=== PATIENT | male | born 1970 | race Caucasian/White ===

== ENCOUNTER 2017-11-12 14:23 | Emergency (ER) | payer BC ==
--- NOTE | 2017-11-12 14:51 | EDM.PDOC ---
<Curt Figueroa J - Last Filed: 11/12/17 14:49> ED HPI GENERAL MEDICAL PROBLEM - General Chief Complaint: Flank Pain Stated Complaint: LOWER BACK AND ABDOMINAL PAIN Time Seen by Provider: 11/12/17 14:32 - History of Present Illness INITIAL COMMENTS - FREE TEXT/NARRATIVE: HISTORY AND PHYSICAL: History of present illness: Ages 47-year-old male with history of hypertension and chronic low back pain who presents now with increasing left-sided pain with radiation to his left abdomen and groin is concerned about urolithiasis he does not have a history of such she's had no fever chills trauma no other complaints. Review of systems: As per history of present illness and below otherwise all systems reviewed and negative. Past medical history: As per history of present illness and as reviewed below otherwise noncontributory. Surgical history: As per history of present illness and as reviewed below otherwise noncontributory. Social history: No reported history of drug or alcohol abuse. Family history: As per history of present illness and as reviewed below otherwise noncontributory. Physical exam: HEENT: Atraumatic, normocephalic, pupils reactive, negative for conjunctival pallor or scleral icterus, mucous membranes moist, throat clear, neck supple, nontender, trachea midline. Lungs: Clear to auscultation, breath sounds equal bilaterally, chest nontender. Heart: S1S2, regular, negative for clicks, rubs, or JVD. Abdomen: Soft, nondistended, nontender. Negative for masses or hepatosplenomegaly. Equivocal left side costovertebral tenderness. Pelvis: Stable nontender. Genitourinary: Deferred. Rectal: Deferred. Extremities: Atraumatic, negative for cords or calf pain. Neurovascular unremarkable. Neuro: Awake, alert, oriented. Cranial nerves II through XII unremarkable. Cerebellum unremarkable. Motor and sensory unremarkable throughout. Exam nonfocal. Diagnostics: CBC CMP UA urine C&S CT abdomen and pelvis Therapeutics: None Impression: #1 chronic low back pain #2 acute left flank pain #3 history of hypertension Definitive disposition and diagnosis as appropriate pending reevaluation and review of above. Left Flank Pain Score (Numeric/FACES): 6 - Related Data Allergies Allergy/AdvReac Type Severity Reaction Status Date / Time No Known Allergies Allergy Verified 11/12/17 14:41 Home Meds: Home Meds Fenofibrate Nanocrystallized [Tricor] 145 mg PO DAILY 01/08/15 [History] Sertraline [Zoloft] 100 mg PO DAILY 01/08/15 [History] amLODIPine [Norvasc] 5 mg PO DAILY 01/08/15 [History] metFORMIN [Glucophage] 1,000 mg PO BIDMEALS 01/08/15 [History] Past Medical History Other HEENT History: Wears corrective glasses Other Respiratory History: ARDs ED ROS GENERAL - Review of Systems Review Of Systems: ROS reveals no pertinent complaints other than HPI. ED EXAM, GENERAL - Physical Exam Exam: See Below (See dictation) Course - Vital Signs Last Recorded V/S: Last Vital Signs Temp 36.4 C 11/12/17 14:42 Pulse 85 11/12/17 14:42 Resp 18 11/12/17 14:42 BP 141/80 H 11/12/17 14:42 Pulse Ox 96 11/12/17 14:42 - Orders/Labs/Meds Orders: Active Orders 24 hr Category Date Time Status CULTURE URINE [RM] Stat Lab 11/12/17 13:35 Ordered UA W/MICROSCOPIC [URIN] Stat Lab 11/12/17 13:35 Ordered Labs: Laboratory Tests 11/12/17 11/12/17 11/12/17 Range/Units 13:35 15:01 15:01 WBC 6.76 (4.0-11.0) K/uL RBC 4.56 (4.50-5.90) M/uL Hgb 14.1 (13.0-17.0) g/dL Hct 40.2 (38.0-50.0) % MCV 88.2 (80.0-98.0) fL MCH 30.9 (27.0-32.0) pg MCHC 35.1 (31.0-37.0) g/dL RDW Std Deviation 42.0 (28.0-62.0) fl RDW Coeff of Saeid 13 (11.0-15.0) % Plt Count 233 (150-400) K/uL MPV 9.20 (7.40-12.00) fL Neut % (Auto) 64.0 (48.0-80.0) % Lymph % (Auto) 26.3 (16.0-40.0) % [place] % (Auto) 5.6 (0.0-15.0) % Eos % (Auto) 3.1 (0.0-7.0) % Baso % (Auto) 1.0 (0.0-1.5) % Neut # (Auto) 4.3 (1.4-5.7) K/uL Lymph # (Auto) 1.8 (0.6-2.4) K/uL [place] # (Auto) 0.4 (0.0-0.8) K/uL Eos # (Auto) 0.2 (0.0-0.7) K/uL Baso # (Auto) 0.1 (0.0-0.1) K/uL Nucleated RBC % 0.0 /100WBC Nucleated RBCs # 0 K/uL Sodium 140 (136-148) mmol/L Potassium 4.0 (3.5-5.1) mmol/L Chloride 106 (98-107) mmol/L Carbon Dioxide 23.9 (21.0-32.0) mmol/L BUN 17 (7.0-18.0) mg/dL Creatinine 1.2 (0.8-1.3) mg/dL Est Cr Clr Drug Dosing TNP Estimated GFR (MDRD) > 60.0 ml/min Glucose 219 H (74-106) mg/dL Calcium 9.1 (8.5-10.1) mg/dL Total Bilirubin 0.3 (0.2-1.0) mg/dL AST 37 (15-37) IU/L ALT 78 H (14-63) IU/L Alkaline Phosphatase 49 (46-116) U/L Total Protein 7.7 (6.4-8.2) g/dL Albumin 4.4 (3.4-5.0) g/dL Globulin 3.3 (2.0-3.5) g/dL Albumin/Globulin Ratio 1.3 (1.3-2.8) Urine Color YELLOW Urine Appearance CLEAR Urine pH 5.5 (5.0-8.0) Ur Specific [place] 1.020 (1.001-1.035) Urine Protein NEGATIVE (NEGATIVE) mg/dL Urine Glucose (UA) >=1000 (NEGATIVE) mg/dL Urine Ketones NEGATIVE (NEGATIVE) mg/dL Urine Occult Blood NEGATIVE (NEGATIVE) Urine Nitrite NEGATIVE (NEGATIVE) Urine Bilirubin NEGATIVE (NEGATIVE) Urine Urobilinogen 0.2 (<2.0) EU/dL Ur Leukocyte Esterase NEGATIVE (NEGATIVE) Urine RBC NONE SEEN (0-2/HPF) Urine WBC 0-1 (0-5/HPF) Ur Epithelial Cells RARE (NONE-FEW) Amorphous Sediment NOT SEEN (NEGATIVE) Urine Bacteria NOT SEEN (NEGATIVE) Urine Mucus NOT SEEN (NONE-MOD) Departure - Departure Disposition: Home, Self-Care 01 Clinical Impression: Lumbar back pain - Discharge Information Referrals: Robbie Edmonds MD [Primary Care Provider] - Forms: ED Department Discharge Additional Instructions: 1. Please make an appointment with your pain doctor to arrange for a steroid injection. 2. Follow-up with your primary provider Dr. Edmonds. <Malgorzata Hardwick - Last Filed: 11/12/17 16:01> Departure - Departure Time of Disposition: 16:00 Condition: Good
--- NOTE | 2017-11-12 15:28 | CT ---
CT of the abdomen and pelvis without contrast. HISTORY: Pain TECHNIQUE: Axial CT images were obtained of the abdomen and pelvis without contrast. Coronal and sagi ttal reconstructions obtained. FINDINGS: The lung bases are clear, no pleural effusion. There are a few tiny subpleural nodules noted bilatera lly. There is moderate fatty infiltration of the liver with sparing near the falciform ligament. The Splee n, adrenal glands, and pancreas appear unremarkable for noncontrast examination. The gallbladder appe ars normal. There is no bulky retroperitoneal lymphadenopathy. No abdominal ascites. There are no calcifications noted within the kidneys or along the courses of the ureters bilaterally. Right renal cortical cysts. The large and small bowel are normal in caliber without evidence of obstruction. The appendix appears normal. There is no bulky pelvic lymphadenopathy. No free fluid. No free air. The urinary bladder ap pears normal. Endplate degenerative changes noted within the lower lumbar spine. No acute osseous abnormalities. IMPRESSION: 1. Moderate to severe fatty infiltration of the liver. 2. No acute findings noted within the abdomen or pelvis. 3. Tiny pulmonary nodules within the lung bases bilaterally, if the patient has known risk factors co nsider follow-up imaging in 12 months.
[2017-11-12 15:31] LABS: CHLORIDE,CL 106 mmol/L (98-107); SODIUM,NA 140 mmol/L (136-148)
[2017-11-12 16:10] VITALS: BP 148/93
== END 2017-11-12 16:06 | disposition home or self-care (01) ==
LOC: MW.ED 14:23
DX: M54.5 Low back pain (principal); G89.29 Other chronic pain; R10.9 Unspecified abdominal pain; I10 Essential (primary) hypertension; Z79.84 Long term (current) use of oral hypoglycemic drugs; Z79.899 Other long term (current) drug therapy
CPT/HCPCS: 36415; 74176; 74176-26; 80053; 81001; 85025; 87086; 99284-25

== ENCOUNTER 2019-04-20 09:07 | Observation (INO) | payer BC ==
[2019-04-20] MEDS ORDERED: Sodium Chloride 0.9% 1,000 ML IV ONE (09:22)
[2019-04-20] MEDS ORDERED: Aspirin 81 MG Tab.Chew PO ONE (09:26)
[2019-04-20] MEDS ORDERED: Nitroglycerin 0.4 MG Tab.SL SL PRN (09:45)
[2019-04-20 09:50] LABS: BLOOD UREA NITROGEN,BUN 14 mg/dL (7.0-18.0); CARBON DIOXIDE,CO2 21.2 mmol/L (21.0-32.0); CHLORIDE,CL 101 mmol/L (98-107); GLUCOSE RANDOM 187 mg/dL (74-106); POTASSIUM,K 3.9 mmol/L (3.5-5.1); SODIUM,NA 138 mmol/L (136-148)
[2019-04-20] MEDS: Metoprolol Tartrate 5 MG/5 ML SDV IVPUSH SCH ×3 (09:56→12:51)
--- NOTE | 2019-04-20 09:57 | CR ---
INDICATION: Dyspnea and chest pain. COMPARISON: Portable AP chest January 10, 2015. TECHNIQUE: Portable AP chest. FINDINGS: Normal size cardiac silhouette. Clear lung solomon with no evidence of acute pneumonic infiltrates or CHF. No pneumothorax or pleural effusion. Complete resolution of the pulmonary edema when compared to January 10, 2015. IMPRESSION: Negative portable AP chest. Dictated by Cole Anderson MD @ Apr 20 2019 9:54AM Signed by Dr. Cole Anderson @ Apr 20 2019 9:55AM
[2019-04-20] MEDS ORDERED: Azithromycin 500 MG in Sodium Chloride 0.9% 250 ML IV SCH (10:45)
[2019-04-20] MEDS ORDERED: Sodium Chloride 0.9% 1,000 ML IV SCH (10:45)
[2019-04-20] MEDS ORDERED: Acetaminophen 325 MG Tab PO PRN (11:30)
[2019-04-20] MEDS ORDERED: Docusate Sodium 100 MG Cap PO PRN (11:30)
[2019-04-20] MEDS ORDERED: Ondansetron 4 MG/2 ML SDV IVPUSH PRN (11:30)
[2019-04-20] MEDS: Albuterol/Ipratropium 3.0-0.5 MG/3 ML Neb Soln NEB SCH ×4 (11:57→21:12)
--- NOTE | 2019-04-20 12:01 | PCM.HP.2 ---
H&P History of Present Illness - General Date of Service: 04/20/19 Admit Problem/Dx: Admission Diagnosis/Problem Admission Diagnosis/Problem Chest pain Source of Information: Patient, Family ( at bedside) History Limitations: Reports: No Limitations - History of Present Illness Initial Comments - Free Text/Narative: This 48 year old male with pmh of HTN, dyslipidemia, GERD, DM type 2, ARDS with intubation and ICU stay in 2014 presented to the ED with concerns of chest pain that woke him up around 0200 am this morning. He reports he has not felt well for the last week or so. He was seen by his PCP April 08, influenza was obtained which was negative. VS were stable then and felt it was viral in nature. Today the chest pain woke him up, it was sharp to his left medial chest with radiation to his L neck and L ear with associated shortness of breath and mild diaphoresis. reports the pain worsens with deep breathing. He reports he has been having this sweating on and off the last couple days. He reports sinus congestion, mild ear fullness. No sore throat. He reports coughing and shortness of breath, cough is non productive. He denies abdominal pain or troubles urinating. Reports having increase in diarrhea and actually had stool samples sent last week with Dr Edmonds, so far these are appearing negative. He reports he is eating and drinking well. He reports dyslipidemia, no CAD. No hx LA or CVA. Reports DM Type 2 that is controlled. He chews 1 tin of chewing tobacco every couple days, no alcohol use and no recreational drug use. reports he is being worked up for LUIS and has this scheduled already due to waking up SOB during the night. He also has follow up regarding bowel habit changes next month as well. In the ED leukocytosis noted at 15, 470. UA negative. BMP WNL, glucose elevated at 187. Troponin negative. D Dimer 0.21. BNP 22. CXR negative. EKG reveals RBBB no acute ST or T wave changes. Upon arrival to ED HR tachycardic 133 with BP 150 /100s. He was given Lopressor and BP decreased to 130-150/90s. He was given ASA as well. He was noted to be hypoxic with sats in mid 80s, on 2 L NC sats improved to mid 90s. BC obtained. Azithromycin given in ED. He will be admitted for chest pain rule out, possible CAP and hypoxia. PCP, Dr Edmonds. Left Chest Pain Score (Numeric/FACES): 5 - Related Data Allergies/Adverse Reactions: Allergies Allergy/AdvReac Type Severity Reaction Status Date / Time No Known Allergies Allergy Verified 04/20/19 11:37 Home Medications: Home Meds Fenofibrate Nanocrystallized [Tricor] 160 mg PO DAILY 01/08/15 [History] Sertraline [Zoloft] 100 mg PO DAILY 01/08/15 [History] amLODIPine [Norvasc] 10 mg PO DAILY 01/08/15 [History] Diclofenac Sodium [Voltaren] 75 mg PO TID PRN 04/20/19 [History] Dulaglutide [Trulicity] 1.5 mg IM WEEKLY 04/20/19 [History] Empagliflozin/Metformin HCl [Synjardy 12.5-1,000 mg Tablet] 12.5 mg PO DAILY [History] Naproxen Sodium [Aleve] 220 mg PO ASDIRECTED 04/20/19 [History] Omeprazole 40 mg PO DAILY 04/20/19 [History] Past Medical History Other HEENT History: Wears corrective glasses Cardiovascular History: Reports: High Cholesterol, Hypertension. Denies: Afib, Blood Clots/VTE/DVT, CAD, LA, Stents Respiratory History: Reports: Sleep Apnea (being worked up for this with sleep study as outpatient) Other Respiratory History: ARDs Gastrointestinal History: Reports: GERD Genitourinary History: Reports: None Musculoskeletal History: Reports: Back Pain, Chronic Neurological History: Reports: None. Denies: CVA, Migraines Psychiatric History: Reports: Anxiety Endocrine/Metabolic History: Reports: Diabetes, Type II, Obesity/BMI 30+ - Infectious Disease History Infectious Disease History: Reports: Chicken Pox - Past Surgical History Cardiovascular Surgical History: Reports: None GI Surgical History: Reports: None Neurological Surgical History: Reports: None Musculoskeletal Surgical History: Reports: None Social & Family History - Family History Family Medical History: Noncontributory - Tobacco Use Smoking Status *Q: Former Smoker Tobacco Use Within Last Twelve Months: Smokeless Tobacco Packs/Tins Daily: 0.5 Packs/Tins Daily Comment: tobacco currently. Used Tobacco, but Quit: Yes Month/Year Tobacco Last Used: 5 years - Alcohol Use Alcohol Use History: No - Recreational Drug Use Recreational Drug Use: No - Living Situation & Occupation Living situation: Reports: Occupation: Employed H&P Review of Systems - Review of Systems: Review Of Systems: See Below General: Reports: Fever, Chills, Malaise HEENT: Reports: Ear Pain, Sinus Congestion. Denies: Headaches, Sore Throat, Vertigo, Visual Changes Pulmonary: Reports: Shortness of Breath, Pleuritic Chest Pain, Cough. Denies: Wheezing, Sputum, Hemoptysis Cardiovascular: Reports: Chest Pain (sharp stabbing in nature worse with deep breath, now only 1/). Denies: Lightheadedness Gastrointestinal: Reports: No Symptoms. Denies: Abdominal Pain, Black Stool, Bloody Stool, Diarrhea, Nausea, Vomiting Genitourinary: Reports: No Symptoms. Denies: Dysuria, Frequency, Burning Musculoskeletal: Reports: Back Pain (chronic, no worsening of this.) Skin: Reports: No Symptoms. Denies: Rash, Wound Psychiatric: Reports: No Symptoms Neurological: Reports: No Symptoms Hematologic/Lymphatic: Reports: No Symptoms Immunologic: Reports: No Symptoms Exam - Exam Exam: See Below - Vital Signs Vital Signs: Last Vital Signs Temp 99.0 F 04/20/19 11:30 Pulse 96 04/20/19 11:30 Resp 16 04/20/19 11:30 BP 133/96 H 04/20/19 11:30 Pulse Ox 98 04/20/19 11:30 Weight: 127.006 kg - Exam Quality Assessment: Supplemental Oxygen General: Alert, Oriented, Cooperative HEENT: Conjunctiva Clear, Nares Patent, Posterior Pharynx Clear, Pupils Equal, Pupils Reactive, TMs Clear (dull with serous fluid noted. No erythema). No: Mucosa Moist & [place] (dry lips) Lungs: Normal Respiratory Effort, Decreased Breath Sounds (bibasilar). No: Crackles, Wheezing Cardiovascular: Regular Rate, Regular Rhythm, Normal S1, Normal S2 GI/Abdominal Exam: Normal Bowel Sounds, Soft, Non-Tender, No Organomegaly, No Mass Extremities: Normal Inspection, Normal Range of Motion, Non-Tender, No Pedal Edema Neurological: Cranial Nerves Intact Neuro Extensive - Mental Status: Alert, Oriented x3 Neuro Extensive - Motor, Sensory, Reflexes: CN II-XII Intact Psychiatric: Alert, Normal Affect, Normal Mood - Patient Data Lab Results Last 24 hrs: Laboratory Results - last 24 hr 10/28/19 10/28/19 10/28/19 Range/Units 09:15 09:15 09:15 WBC 15.47 H (4.0-11.0) K/uL RBC 4.95 (4.50-5.90) M/uL Hgb 14.9 (13.0-17.0) g/dL Hct 41.9 (38.0-50.0) % MCV 84.6 (80.0-98.0) fL MCH 30.1 (27.0-32.0) pg MCHC 35.6 (31.0-37.0) g/dL RDW Std Deviation 39.8 (28.0-62.0) fl RDW Coeff of Saeid 13 (11.0-15.0) % Plt Count 265 (150-400) K/uL MPV 8.80 (7.40-12.00) fL Neut % (Auto) 81.8 H (48.0-80.0) % Lymph % (Auto) 10.3 L (16.0-40.0) % [place] % (Auto) 5.2 (0.0-15.0) % Eos % (Auto) 2.4 (0.0-7.0) % Baso % (Auto) 0.3 (0.0-1.5) % Neut # (Auto) 12.7 H (1.4-5.7) K/uL Lymph # (Auto) 1.6 (0.6-2.4) K/uL [place] # (Auto) 0.8 (0.0-0.8) K/uL Eos # (Auto) 0.4 (0.0-0.7) K/uL Baso # (Auto) 0.0 (0.0-0.1) K/uL Nucleated RBC % 0.0 /100WBC Nucleated RBCs # 0 K/uL INR 0.97 D-Dimer, Quantitative (0.0-0.50) mg/L FEU Lactate (0.20-2.00) mmol/L Sodium 138 (136-148) mmol/L Potassium 3.9 (3.5-5.1) mmol/L Chloride 101 (98-107) mmol/L Carbon Dioxide 21.2 (21.0-32.0) mmol/L BUN 14 (7.0-18.0) mg/dL Creatinine 0.9 (0.8-1.3) mg/dL Est Cr Clr Drug Dosing 123.23 mL/min Estimated GFR (MDRD) > 60.0 ml/min Glucose 187 H (74-106) mg/dL Calcium 9.5 (8.5-10.1) mg/dL Total Bilirubin 0.5 (0.2-1.0) mg/dL AST 29 (15-37) IU/L ALT 41 (14-63) IU/L Alkaline Phosphatase 70 (46-116) U/L Troponin I < 0.050 (0.000-0.056) ng/mL Total Protein 8.8 H (6.4-8.2) g/dL Albumin 4.6 (3.4-5.0) g/dL Globulin 4.2 H (2.6-4.0) g/dL Albumin/Globulin Ratio 1.1 (0.9-1.6) Urine Color Urine Appearance Urine pH (5.0-8.0) Ur Specific [place] (1.001-1.035) Urine Protein (NEGATIVE) mg/dL Urine Glucose (UA) (NEGATIVE) mg/dL Urine Ketones (NEGATIVE) mg/dL Urine Occult Blood (NEGATIVE) Urine Nitrite (NEGATIVE) Urine Bilirubin (NEGATIVE) Urine Urobilinogen (<2.0) EU/dL Ur Leukocyte Esterase (NEGATIVE) 04/20/19 04/20/19 04/20/19 Range/Units 09:15 10:49 11:06 WBC (4.0-11.0) K/uL RBC (4.50-5.90) M/uL Hgb (13.0-17.0) g/dL Hct (38.0-50.0) % MCV (80.0-98.0) fL MCH (27.0-32.0) pg MCHC (31.0-37.0) g/dL RDW Std Deviation (28.0-62.0) fl RDW Coeff of Saeid (11.0-15.0) % Plt Count (150-400) K/uL MPV (7.40-12.00) fL Neut % (Auto) (48.0-80.0) % Lymph % (Auto) (16.0-40.0) % [place] % (Auto) (0.0-15.0) % Eos % (Auto) (0.0-7.0) % Baso % (Auto) (0.0-1.5) % Neut # (Auto) (1.4-5.7) K/uL Lymph # (Auto) (0.6-2.4) K/uL [place] # (Auto) (0.0-0.8) K/uL Eos # (Auto) (0.0-0.7) K/uL Baso # (Auto) (0.0-0.1) K/uL Nucleated RBC % /100WBC Nucleated RBCs # K/uL INR D-Dimer, Quantitative 0.21 (0.0-0.50) mg/L FEU Lactate 1.3 (0.20-2.00) mmol/L Sodium (136-148) mmol/L Potassium (3.5-5.1) mmol/L Chloride (98-107) mmol/L Carbon Dioxide (21.0-32.0) mmol/L BUN (7.0-18.0) mg/dL Creatinine (0.8-1.3) mg/dL Est Cr Clr Drug Dosing mL/min Estimated GFR (MDRD) ml/min Glucose (74-106) mg/dL Calcium (8.5-10.1) mg/dL Total Bilirubin (0.2-1.0) mg/dL AST (15-37) IU/L ALT (14-63) IU/L Alkaline Phosphatase (46-116) U/L Troponin I (0.000-0.056) ng/mL Total Protein (6.4-8.2) g/dL Albumin (3.4-5.0) g/dL Globulin (2.6-4.0) g/dL Albumin/Globulin Ratio (0.9-1.6) Urine Color YELLOW Urine Appearance CLEAR Urine pH 6.0 (5.0-8.0) Ur Specific [place] 1.015 (1.001-1.035) Urine Protein NEGATIVE (NEGATIVE) mg/dL Urine Glucose (UA) >=1000 (NEGATIVE) mg/dL Urine Ketones NEGATIVE (NEGATIVE) mg/dL Urine Occult Blood NEGATIVE (NEGATIVE) Urine Nitrite NEGATIVE (NEGATIVE) Urine Bilirubin NEGATIVE (NEGATIVE) Urine Urobilinogen 0.2 (<2.0) EU/dL Ur Leukocyte Esterase NEGATIVE (NEGATIVE) Result Diagrams: 04/20/19 09:15 04/20/19 09:15 EKG INTERPRETATION EKG Date: 04/20/19 Rate (Beats/Min): 80 P-Wave: Present QRS: RBBB ST-T: Normal QT: Normal Comparison: Change From Previous EKG *Q Meaningful Use (ADM) - VTE Risk Assess *Q Each Risk Factor Represents 1 Point: Age 41 - 59 years, Obesity ( BMI > 25 kg/m2 ), Serious lung disease including pneumonia Total Score 1 Point Risk Factors: 3 Each Risk Factor Represents 2 Points: None Total Score 2 Point Risk Factors: 0 Each Risk Factor Represents 3 Points: None Total Score 3 Point Risk Factors: 0 Each Risk Factor Represents 5 Points: None Total Score 5 Point Risk Factors: 0 Venous Thromboembolism Risk Factor Score *Q: 3 - Problem List (1) Chest pain SNOMED Code(s): 13580454 ICD Code: R07.9 - CHEST PAIN, UNSPECIFIED Status: Acute Current Visit: Yes (2) CAP (community acquired pneumonia) SNOMED Code(s): 468431622 ICD Code: J18.9 - PNEUMONIA, UNSPECIFIED ORGANISM Status: Acute Current Visit: Yes (3) Acute sinusitis SNOMED Code(s): 03544210 ICD Code: J01.90 - ACUTE SINUSITIS, UNSPECIFIED Status: Acute Current Visit: Yes (4) HTN (hypertension) SNOMED Code(s): 68608613 ICD Code: I10 - ESSENTIAL (PRIMARY) HYPERTENSION Status: Chronic Current Visit: Yes (5) Leukocytosis SNOMED Code(s): 126843613, 145781356 ICD Code: D72.829 - ELEVATED WHITE BLOOD CELL COUNT, UNSPECIFIED Status: Acute Current Visit: Yes (6) DM type 2 (diabetes mellitus, type 2) SNOMED Code(s): 11809932 ICD Code: E11.9 - TYPE 2 DIABETES MELLITUS WITHOUT COMPLICATIONS Status: Chronic Current Visit: Yes Qualifiers: Diabetes mellitus prison insulin use: without intermodal customer service use Problem List Initiated/Reviewed/Updated: Yes Orders Last 24hrs: Active Orders 24 hr Category Date Time Status Admission Status [Patient Status] [ADT] Stat ADT 04/20/19 10:37 Active Ambulate [RC] ASDIRECTED Care 04/20/19 11:30 Active Blood Glucose Check, Bedside [RC] TIDAC Care 04/20/19 11:37 Active Cardiac Monitoring [RC] . DIRECTED Care 04/20/19 09:21 Active Cardiac Monitoring [RC] . DIRECTED Care 04/20/19 10:37 Active Height and Weight [RC] DAILY Care 04/20/19 11:30 Active Intake and Output [RC] QSHIFT Care 04/20/19 11:31 Active Oxygen Therapy [RC] PRN Care 04/20/19 11:30 Active RT Aerosol Therapy [RC] ASDIRECTED Care 04/20/19 11:32 Active Telemetry Monitoring [Cardiac Monitoring] [RC] . Care 04/20/19 11:29 Active DIRECTED Up With Assistance [RC] ASDIRECTED Care 04/20/19 11:30 Active VTE/DVT Education [RC] PER UNIT ROUTINE Care 04/20/19 11:30 Active Vital Signs [RC] Q4H Care 04/20/19 11:30 Active [place] [employer] Diet [DIET] Diet 04/20/19 Lunch Active B-TYPE NATRIURETIC PEPTIDE,BNP [CHEM] Routine Lab 04/20/19 09:15 Received BASIC METABOLIC PANEL,BMP [CHEM] AM Lab 04/21/19 05:11 Ordered CBC WITH AUTO DIFF [HEME] AM Lab 04/21/19 05:11 Ordered CULTURE BLOOD [BC] Stat Lab 04/20/19 10:41 Received CULTURE BLOOD [BC] Stat Lab 04/20/19 10:49 Received CULTURE SPUTUM + SMEAR [RM] Stat Lab 04/20/19 11:30 Ordered INFLUENZA A+B AG SCREEN [RM] Stat Lab 04/20/19 11:34 Ordered LEGIONELLA ANTIGEN [MREF] Urgent Lab 04/20/19 11:34 Ordered STREP PNEUMONIAE ANTIGEN [MREF] Urgent Lab 04/20/19 11:34 Ordered TROPONIN I [CHEM] Q6H Lab 04/20/19 15:15 Ordered TROPONIN I [CHEM] Q6H Lab 04/20/19 21:15 Ordered Acetaminophen [Tylenol] Med 04/20/19 11:30 Active 650 mg PO Q4H PRN Albuterol/Ipratropium [DuoNeb 3.0-0.5 MG/3 ML] Med 04/20/19 11:30 Active 3 ml NEB Q4HRRT Azithromycin [Zithromax] Med 04/21/19 09:00 Active 500 mg PO Q24H Azithromycin [Zithromax] 500 mg Med 04/20/19 10:45 Active Sodium Chloride 0.9% [Normal Saline (AdvBag)] 250 ml IV ONETIME Docusate Sodium [Colace] Med 04/20/19 11:30 Active 100 mg PO BID PRN Insulin Aspart [NovoLOG] Med 04/20/19 11:45 Active See Protocol SUBCUT TIDAC Nitroglycerin [Nitrostat] Med 04/20/19 09:45 Active 0.4 mg SL Q5M PRN Ondansetron [Zofran] Med 04/20/19 11:30 Active 4 mg IVPUSH Q4H PRN Pantoprazole [ProTONIX IV] 40 mg Med 04/20/19 11:30 Active Sodium Chloride 0.9% [Normal Saline] 10 ml IV Q24H Sodium Chloride 0.9% [Normal Saline] 1,000 ml Med 04/20/19 10:45 Active IV ASDIRECTED cefTRIAXone [Rocephin in Dextrose,Iso-Osm 1 GM/50 ML] 1 Med 04/20/19 11:30 Active gm Premix Bag 1 bag IV Q24H Blood Culture x2 Reflex Set [OM.PC] Stat Oth 04/20/19 10:35 Ordered Resuscitation Status Routine Resus Stat 04/20/19 11:30 Ordered Medication Orders Acetaminophen (Tylenol) 650 mg PO Q4H PRN PRN Reason: Pain (mild 1-3) Albuterol/Ipratropium (Duoneb 3.0-0.5 Mg/3 Ml) 3 ml NEB Q4HRRT SIMA Azithromycin (Zithromax) 500 mg PO Q24H SIMA Docusate Sodium (Colace) 100 mg PO BID PRN PRN Reason: Constipation Azithromycin 500 mg/ Sodium (Chloride) 250 mls @ 250 mls/hr IV ONETIME SIMA Last Admin: 04/20/19 11:11 Dose: 250 mls/hr Sodium Chloride (Normal Saline) 1,000 mls @ 125 mls/hr IV ASDIRECTED SIMA Last Admin: 04/20/19 11:11 Dose: 125 mls/hr Ceftriaxone Sodium/Dextrose 1 (gm/ Premix) 50 mls @ 100 mls/hr IV Q24H SIMA Pantoprazole Sodium 40 mg/ (Sodium Chloride) 10 mls @ 300 mls/hr IV Q24H SIMA Insulin Aspart (Novolog) 0 unit SUBCUT TIDAC SIMA; Protocol Nitroglycerin (Nitrostat) 0.4 mg SL Q5M PRN PRN Reason: Chest Pain Ondansetron HCl (Zofran) 4 mg IVPUSH Q4H PRN PRN Reason: Nausea Assessment/Plan Comment:: This 48 year old male admitted with chest pain rule out ACS, suspected CAP and acute sinusitis 1.Chest pain: possibly more pleuritic in nature. Will trend troponins and monitor on Telemetry. Will need outpatient stress test. ECHO due to paroxysmal nocturnal dyspnea to evaluate for pulmonary HTN or CHF. Recent labwork with PCP revealed Triglycerides 331, HDL 30 LDL 90, Total cholesterol 186. A1c 7.6. 2. Suspected CAP: Hypoxia noted on admission, D Dimer negative and low risk for PE. CXR negative, but has diminished lung sounds, will treat with Azithromycin and Rocephin for now. BC pending. Sputum pending. Legionella and strep antigens pending. Will encourage IS. Duonebs every 4 hours. No wheezing, will hold off on steroids for now. Lactic acid normal. HR has improved with IV fluid bolus in ED. Monitor. Will give IVFs overnight and monitor. Influenza negative. 3. Acute sinusitis: Treat with above antibiotics. Add Flonase. Will monitor. 4. DM Type 2: Hold PO medications. Novolog SSI and checking BS with meals. 5.HTN: Stable, will monitor. Continue Norvasc. VTE prophylaxis: Lovenox. Dispo: 1-2 days - Mortality Measure Prognosis:: Good
[2019-04-20] MEDS: Pantoprazole 40 MG in Sodium Chloride 0.9% 10 ML IV SCH (12:07)
[2019-04-20] MEDS: cefTRIAXone 1 GM in Premix Bag 1 BAG IV SCH (12:20)
--- NOTE | 2019-04-20 13:23 | EDM.PDOC ---
ED HPI GENERAL MEDICAL PROBLEM - General Chief Complaint: Chest Pain Stated Complaint: CHEST DISCOMFORTK, SOB Time Seen by Provider: 04/20/19 09:10 Source of Information: Reports: Patient, Family ( at bedside) History Limitations: Reports: No Limitations - History of Present Illness INITIAL COMMENTS - FREE TEXT/NARRATIVE: HISTORY AND PHYSICAL: History of present illness: Patient is a 48-year-old male presents to the ED with complaint of chest pain. He states he had some chest pain starting around 2 this morning. It had gotten a little better but came back again prompting him to come to the ED. He states he was having pain in to his left jaw which has since resolved. He is currently having chest pain 08/31. He states he is having some shortness of breath and has had a cough. Denies fevers, chills, nausea, vomiting, diaphoresis. History of hypertension, hyperlipidemia, and type 2 diabetes. HR 120s on arrival, EKG shows sinus tachycardia. Review of systems: As per history of present illness and below otherwise all systems reviewed and negative. Past medical history: As per history of present illness and as reviewed below otherwise noncontributory. Surgical history: As per history of present illness and as reviewed below otherwise noncontributory. Social history: No reported history of drug or alcohol abuse. Family history: As per history of present illness and as reviewed below otherwise noncontributory. Physical exam: General: Patient sitting comfortably in no acute distress and nontoxic appearing HEENT: Atraumatic, normocephalic, pupils reactive, negative for conjunctival pallor or scleral icterus, mucous membranes moist, throat clear, neck supple, nontender, trachea midline. No meningeal signs. Lungs: Clear to auscultation, breath sounds equal bilaterally, chest nontender. Heart: S1S2, regular, negative for clicks, rubs, or overt murmur. Abdomen: Soft, nondistended, nontender. Negative for masses or hepatosplenomegaly. Negative for costovertebral tenderness. No rigidity, rebound , guarding. Pelvis: Stable nontender. Genitourinary: Deferred. Rectal: Deferred. Extremities: Atraumatic, negative for cords or calf pain. Neurovascular unremarkable. Neuro: Awake, alert, oriented. Cranial nerves II through XII unremarkable. Cerebellum unremarkable. Motor and sensory unremarkable throughout. Exam nonfocal. Notes: Diagnostics: CBC, CMP, troponin, EKG, CXR, blood culture x 2, lactic aci Therapeutics: 1L NS IV Lopressor IV Prescriptions: Impression: Chest pain, tachycardia, leukocytosis Plan: Discussed with Dr. Moy, patient admitted for observation chest pain r/o ACS Definitive disposition and diagnosis as appropriate pending reevaluation and review of above. Left Chest Pain Score (Numeric/FACES): 5 - Related Data Allergies Allergy/AdvReac Type Severity Reaction Status Date / Time No Known Allergies Allergy Verified 04/20/19 11:37 Home Meds: Home Meds Fenofibrate Nanocrystallized [Tricor] 160 mg PO DAILY 01/08/15 [History] Sertraline [Zoloft] 100 mg PO DAILY 01/08/15 [History] amLODIPine [Norvasc] 10 mg PO DAILY 01/08/15 [History] Diclofenac Sodium [Voltaren] 75 mg PO TID PRN 04/20/19 [History] Dulaglutide [Trulicity] 1.5 mg IM WEEKLY 04/20/19 [History] Empagliflozin/Metformin HCl [Synjardy 12.5-1,000 mg Tablet] 12.5 mg PO DAILY [History] Naproxen Sodium [Aleve] 220 mg PO ASDIRECTED 04/20/19 [History] Omeprazole 40 mg PO DAILY 04/20/19 [History] Past Medical History Other HEENT History: Wears corrective glasses Cardiovascular History: Reports: High Cholesterol, Hypertension Respiratory History: Reports: Other (See Below) Other Respiratory History: ARDs Other Gastrointestinal History: patient takes omeprozole for reflux Musculoskeletal History: Reports: Back Pain, Chronic Psychiatric History: Reports: Anxiety Endocrine/Metabolic History: Reports: Diabetes, Type II - Infectious Disease History Infectious Disease History: Reports: Chicken Pox - Past Surgical History HEENT Surgical History: Reports: None Cardiovascular Surgical History: Reports: None Respiratory Surgical History: Reports: None GI Surgical History: Reports: None Endocrine Surgical History: Reports: None Musculoskeletal Surgical History: Reports: None Social & Family History - Family History Family Medical History: Noncontributory Cardiac: Reports: Afib Endocrine/Metabolic: Reports: Diabetes, type II, Hyperthyroidism Oncologic: Reports: Breast - Tobacco Use Smoking Status *Q: Former Smoker Years of Tobacco use: 25 Packs/Tins Daily: 2 Used Tobacco, but Quit: Yes Month/Year Tobacco Last Used: 5 years Tobacco Use Comment: patient states currently chews tobacco, getting ready to quit. Second Hand Smoke Exposure: No - Caffeine Use Caffeine Use: Reports: Coffee, Tea Caffeine Use Comment: 5 cups of coffee per day, 1 tea per day. - Alcohol Use Date of Last Drink: 10/22/16 - Recreational Drug Use Recreational Drug Use: No ED ROS GENERAL - Review of Systems Review Of Systems: ROS reveals no pertinent complaints other than HPI. ED EXAM, GENERAL - Physical Exam Exam: See Below (see dictation) Course - Vital Signs Last Recorded V/S: Last Vital Signs Temp 99.0 F 04/20/19 11:30 Pulse 96 04/20/19 11:30 Resp 16 04/20/19 11:30 BP 133/96 H 04/20/19 11:30 Pulse Ox 98 04/20/19 11:30 - Orders/Labs/Meds Orders: Active Orders 24 hr Category Date Time Status Cardiac Monitoring [RC] . DIRECTED Care 04/20/19 09:21 Active CULTURE BLOOD [BC] Stat Lab 04/20/19 10:41 Received CULTURE BLOOD [BC] Stat Lab 04/20/19 10:49 Received Azithromycin [Zithromax] 500 mg Med 04/20/19 10:45 Active Sodium Chloride 0.9% [Normal Saline (AdvBag)] 250 ml IV ONETIME Nitroglycerin [Nitrostat] Med 04/20/19 09:45 Active 0.4 mg SL Q5M PRN Blood Culture x2 Reflex Set [OM.PC] Stat Oth 04/20/19 10:35 Ordered Medication Orders Acetaminophen (Tylenol) 650 mg PO Q4H PRN PRN Reason: Pain (mild 1-3) Albuterol/Ipratropium (Duoneb 3.0-0.5 Mg/3 Ml) 3 ml NEB Q4HRRT SIMA Last Admin: 04/20/19 11:57 Dose: 3 ml Azithromycin (Zithromax) 500 mg PO Q24H [facility] Docusate Sodium (Colace) 100 mg PO BID PRN PRN Reason: Constipation Azithromycin 500 mg/ Sodium (Chloride) 250 mls @ 250 mls/hr IV ONETIME [facility]A Last Admin: 04/20/19 11:11 Dose: 250 mls/hr Ceftriaxone Sodium/Dextrose 1 (gm/ Premix) 50 mls @ 100 mls/hr IV Q24H [facility] Last Admin: 04/20/19 12:20 Dose: 100 mls/hr Pantoprazole Sodium 40 mg/ (Sodium Chloride) 10 mls @ 300 mls/hr IV Q24H [facility] Last Admin: 04/20/19 12:07 Dose: 300 mls/hr Sodium Chloride (Normal Saline) 1,000 mls @ 125 mls/hr IV ASDIRECTED [facility] Insulin Aspart (Novolog) 0 unit SUBCUT TIDAC [facility]A; Protocol Nitroglycerin (Nitrostat) 0.4 mg SL Q5M PRN PRN Reason: Chest Pain Ondansetron HCl (Zofran) 4 mg IVPUSH Q4H PRN PRN Reason: Nausea Labs: Laboratory Tests 04/20/19 04/20/19 04/20/19 Range/Units 09:15 09:15 09:15 WBC 15.47 H (4.0-11.0) K/uL RBC 4.95 (4.50-5.90) M/uL Hgb 14.9 (13.0-17.0) g/dL Hct 41.9 (38.0-50.0) % MCV 84.6 (80.0-98.0) fL MCH 30.1 (27.0-32.0) pg MCHC 35.6 (31.0-37.0) g/dL RDW Std Deviation 39.8 (28.0-62.0) fl RDW Coeff of Saeid 13 (11.0-15.0) % Plt Count 265 (150-400) K/uL MPV 8.80 (7.40-12.00) fL Neut % (Auto) 81.8 H (48.0-80.0) % Lymph % (Auto) 10.3 L (16.0-40.0) % Irwin % (Auto) 5.2 (0.0-15.0) % Eos % (Auto) 2.4 (0.0-7.0) % Baso % (Auto) 0.3 (0.0-1.5) % Neut # (Auto) 12.7 H (1.4-5.7) K/uL Lymph # (Auto) 1.6 (0.6-2.4) K/uL Irwin # (Auto) 0.8 (0.0-0.8) K/uL Eos # (Auto) 0.4 (0.0-0.7) K/uL Baso # (Auto) 0.0 (0.0-0.1) K/uL Nucleated RBC % 0.0 /100WBC Nucleated RBCs # 0 K/uL INR 0.97 D-Dimer, Quantitative (0.0-0.50) mg/L FEU Sodium 138 (136-148) mmol/L Potassium 3.9 (3.5-5.1) mmol/L Chloride 101 (98-107) mmol/L Carbon Dioxide 21.2 (21.0-32.0) mmol/L BUN 14 (7.0-18.0) mg/dL Creatinine 0.9 (0.8-1.3) mg/dL Est Cr Clr Drug Dosing 123.23 mL/min Estimated GFR (MDRD) > 60.0 ml/min Glucose 187 H (74-106) mg/dL Calcium 9.5 (8.5-10.1) mg/dL Total Bilirubin 0.5 (0.2-1.0) mg/dL AST 29 (15-37) IU/L ALT 41 (14-63) IU/L Alkaline Phosphatase 70 (46-116) U/L Troponin I < 0.050 (0.000-0.056) ng/mL B-Natriuretic Peptide (<100) PG/ML Total Protein 8.8 H (6.4-8.2) g/dL Albumin 4.6 (3.4-5.0) g/dL Globulin 4.2 H (2.6-4.0) g/dL Albumin/Globulin Ratio 1.1 (0.9-1.6) 04/20/19 04/20/19 Range/Units 09:15 09:15 WBC (4.0-11.0) K/uL RBC (4.50-5.90) M/uL Hgb (13.0-17.0) g/dL Hct (38.0-50.0) % MCV (80.0-98.0) fL MCH (27.0-32.0) pg MCHC (31.0-37.0) g/dL RDW Std Deviation (28.0-62.0) fl RDW Coeff of Saeid (11.0-15.0) % Plt Count (150-400) K/uL MPV (7.40-12.00) fL Neut % (Auto) (48.0-80.0) % Lymph % (Auto) (16.0-40.0) % Irwin % (Auto) (0.0-15.0) % Eos % (Auto) (0.0-7.0) % Baso % (Auto) (0.0-1.5) % Neut # (Auto) (1.4-5.7) K/uL Lymph # (Auto) (0.6-2.4) K/uL Irwin # (Auto) (0.0-0.8) K/uL Eos # (Auto) (0.0-0.7) K/uL Baso # (Auto) (0.0-0.1) K/uL Nucleated RBC % /100WBC Nucleated RBCs # K/uL INR D-Dimer, Quantitative 0.21 (0.0-0.50) mg/L FEU Sodium (136-148) mmol/L Potassium (3.5-5.1) mmol/L Chloride (98-107) mmol/L Carbon Dioxide (21.0-32.0) mmol/L BUN (7.0-18.0) mg/dL Creatinine (0.8-1.3) mg/dL Est Cr Clr Drug Dosing mL/min Estimated GFR (MDRD) ml/min Glucose (74-106) mg/dL Calcium (8.5-10.1) mg/dL Total Bilirubin (0.2-1.0) mg/dL AST (15-37) IU/L ALT (14-63) IU/L Alkaline Phosphatase (46-116) U/L Troponin I (0.000-0.056) ng/mL B-Natriuretic Peptide 22 (<100) PG/ML Total Protein (6.4-8.2) g/dL Albumin (3.4-5.0) g/dL Globulin (2.6-4.0) g/dL Albumin/Globulin Ratio (0.9-1.6) Meds: Medications Generic Name Dose Route Start Last Admin Trade Name Freq PRN Reason Stop Dose Admin Acetaminophen 650 mg 04/20/19 11:30 Tylenol PO Q4H PRN Pain (mild 1-3) Albuterol/Ipratropium 3 ml 04/20/19 11:30 04/20/19 11:57 Duoneb 3.0-0.5 Mg/3 Ml NEB 3 ml Q4HRRT SIMA Administration Azithromycin 500 mg 04/21/19 09:00 Zithromax PO Q24H [facility] Docusate Sodium 100 mg 04/20/19 11:30 Colace PO BID PRN Constipation Azithromycin 500 mg/ Sodium 250 mls @ 250 mls/hr 04/20/19 10:45 04/20/19 11: 11 Chloride IV 250 mls/hr ONETIME SIMA Administration Ceftriaxone Sodium/Dextrose 1 50 mls @ 100 mls/hr 04/20/19 11:30 04/20/19 12: 20 gm/ Premix IV 100 mls/hr Q24H [facility] Administration Pantoprazole Sodium 40 mg/ 10 mls @ 300 mls/hr 04/20/19 11:30 04/20/19 12:07 Sodium Chloride IV 300 mls/hr Q24H [facility] Administration Sodium Chloride 1,000 mls @ 125 mls/hr 04/20/19 12:58 Normal Saline IV ASDIRECTED [facility] Insulin Aspart 0 unit 04/20/19 11:45 Novolog SUBCUT TIDAC [facility] Protocol Nitroglycerin 0.4 mg 04/20/19 09:45 Nitrostat SL Q5M PRN Chest Pain Ondansetron HCl 4 mg 04/20/19 11:30 Zofran IVPUSH Q4H PRN Nausea Discontinued Medications Generic Name Dose Route Start Last Admin Trade Name Thomasq PRN Reason Stop Dose Admin Aspirin 324 mg 04/20/19 09:26 04/20/19 09:30 Aspirin PO 04/20/19 09:27 324 mg ONETIME ONE Administration Sodium Chloride 1,000 mls @ 999 mls/hr 04/20/19 09:22 04/20/19 09:25 Normal Saline IV 04/20/19 10:22 999 mls/hr .Bolus ONE Administration Sodium Chloride 1,000 mls @ 125 mls/hr 04/20/19 10:45 04/20/19 11:11 Normal Saline IV 125 mls/hr ASDIRECTED [facility] Administration Metoprolol Tartrate 5 mg 04/20/19 09:45 04/20/19 12:51 Lopressor IVPUSH 04/20/19 09:56 Not Given Q5M [facility] Departure - Departure Time of Disposition: 13:37 Disposition: Refer to Observation Condition: Good Clinical Impression: Chest pain, Cough, Leukocytosis - My Orders Last 24 Hours: My Active Orders 04/20/19 09:21 Cardiac Monitoring [RC] . DIRECTED 04/20/19 10:35 Blood Culture x2 Reflex Set [OM.PC] Stat 04/20/19 10:41 CULTURE BLOOD [BC] Stat 04/20/19 10:45 Azithromycin [Zithromax] 500 mg Sodium Chloride 0.9% [Normal Saline (AdvBag)] 250 ml IV ONETIME 04/20/19 10:49 CULTURE BLOOD [BC] Stat - Assessment/Plan Last 24 Hours: My Active Orders 04/20/19 09:21 Cardiac Monitoring [RC] . DIRECTED 04/20/19 10:35 Blood Culture x2 Reflex Set [OM.PC] Stat 04/20/19 10:41 CULTURE BLOOD [BC] Stat 04/20/19 10:45 Azithromycin [Zithromax] 500 mg Sodium Chloride 0.9% [Normal Saline (AdvBag)] 250 ml IV ONETIME 04/20/19 10:49 CULTURE BLOOD [BC] Stat
[2019-04-20] MEDS: Insulin Aspart 100 Units/ML 3 ML Pen SUBCUT SCH ×2 (13:38→16:36)
[2019-04-20] MEDS: Enoxaparin 40 MG/0.4 ML Syringe SUBCUT SCH (15:17)
[2019-04-20] MEDS: Fluticasone Propionate Nasal Spray 16 GM Bottle NASBOTH SCH (15:18)
[2019-04-20] MEDS: Sodium Chloride 0.9% 1,000 ML IV SCH (19:54)
[2019-04-21] MEDS: Albuterol/Ipratropium 3.0-0.5 MG/3 ML Neb Soln NEB SCH ×6 (02:01→21:16)
[2019-04-21] MEDS: Sodium Chloride 0.9% 1,000 ML IV SCH ×2 (03:22→12:48)
[2019-04-21] MEDS: Omeprazole 20 MG Cap.CR PO SCH (06:29)
[2019-04-21] MEDS: Insulin Aspart 100 Units/ML 3 ML Pen SUBCUT SCH ×3 (06:45→16:15)
[2019-04-21 06:57] LABS: BLOOD UREA NITROGEN,BUN 10 mg/dL (7.0-18.0); CHLORIDE,CL 104 mmol/L (98-107); GLUCOSE RANDOM 143 mg/dL (74-106); POTASSIUM,K 3.3 mmol/L (3.5-5.1); SODIUM,NA 140 mmol/L (136-148)
[2019-04-21] MEDS: Fluticasone Propionate Nasal Spray 16 GM Bottle NASBOTH SCH (08:17)
[2019-04-21] MEDS: Sertraline 100 MG Tab PO SCH (08:18)
[2019-04-21] MEDS: amLODIPine 5 MG Tab PO SCH (08:18)
[2019-04-21] MEDS: Azithromycin 250 MG Tab PO SCH (08:18)
[2019-04-21] MEDS: Fluticasone/Salmeterol 100-50 MCG Inhalation Powder 14/Diskus INH SCH ×2 (09:09→21:16)
[2019-04-21] MEDS: FENOFIBRATE NANOCRYSTALLIZED 160 MG PO SCH (09:14)
[2019-04-21] MEDS: methylPREDNISolone Sodium Succinate 40 MG/1 ML SDV IVPUSH SCH ×2 (10:28→22:35)
--- NOTE | 2019-04-21 10:46 | PCM.PN ---
- General Info Date of Service: 04/21/19 Admission Dx/Problem (Free Text): Admission Diagnosis/Problem Admission Diagnosis/Problem Chest pain Subjective Update: feeling a little better today, chest pain with deep breathing continues with mild dyspnea still noted along with sinus congestion. No other complaints. Functional Status: Reports: Pain Controlled, Tolerating Diet, Ambulating, Urinating - Review of Systems General: Reports: No Symptoms. Denies: Weakness, Fatigue, Malaise HEENT: Reports: Headaches, Sinus Congestion. Denies: Sore Throat Pulmonary: Reports: Shortness of Breath, Pleuritic Chest Pain, Cough. Denies: Hemoptysis, Wheezing Cardiovascular: Reports: No Symptoms. Denies: Chest Pain Gastrointestinal: Reports: No Symptoms. Denies: Abdominal Pain, Nausea, Vomiting Musculoskeletal: Reports: No Symptoms Skin: Reports: No Symptoms Neurological: Reports: No Symptoms Psychiatric: Reports: No Symptoms - Patient Data Vitals - Most Recent: Last Vital Signs Temp 97.8 F 04/21/19 07:33 Pulse 81 04/21/19 07:33 Resp 16 04/21/19 07:33 BP 138/76 04/21/19 08:18 Pulse Ox 92 L 04/21/19 07:33 Weight - Most Recent: 123.785 kg I&O - Last 24 Hours: Intake & Output 04/20/19 04/21/19 04/21/19 22:59 06:59 14:59 Intake Total 1005 2937 Output Total 250 2400 Balance 755 537 Lab Results Last 24 Hours: Laboratory Results - last 24 hr 04/20/19 04/20/19 04/20/19 Range/Units 09:15 09:15 10:49 WBC (4.0-11.0) K/uL RBC (4.50-5.90) M/uL Hgb (13.0-17.0) g/dL Hct (38.0-50.0) % MCV (80.0-98.0) fL MCH (27.0-32.0) pg MCHC (31.0-37.0) g/dL RDW Std Deviation (28.0-62.0) fl RDW Coeff of Saeid (11.0-15.0) % Plt Count (150-400) K/uL MPV (7.40-12.00) fL Neut % (Auto) (48.0-80.0) % Lymph % (Auto) (16.0-40.0) % [place] % (Auto) (0.0-15.0) % Eos % (Auto) (0.0-7.0) % Baso % (Auto) (0.0-1.5) % Neut # (Auto) (1.4-5.7) K/uL Lymph # (Auto) (0.6-2.4) K/uL [place] # (Auto) (0.0-0.8) K/uL Eos # (Auto) (0.0-0.7) K/uL Baso # (Auto) (0.0-0.1) K/uL Nucleated RBC % /100WBC Nucleated RBCs # K/uL D-Dimer, Quantitative 0.21 (0.0-0.50) mg/L FEU Lactate 1.3 (0.20-2.00) mmol/L Sodium (136-148) mmol/L Potassium (3.5-5.1) mmol/L Chloride (98-107) mmol/L Carbon Dioxide (21.0-32.0) mmol/L BUN (7.0-18.0) mg/dL Creatinine (0.8-1.3) mg/dL Est Cr Clr Drug Dosing mL/min Estimated GFR (MDRD) ml/min Glucose (74-106) mg/dL POC Glucose (60-110) mg/dL Calcium (8.5-10.1) mg/dL Troponin I (0.000-0.056) ng/mL B-Natriuretic Peptide 22 (<100) PG/ML Urine Color Urine Appearance Urine pH (5.0-8.0) Ur Specific [place] (1.001-1.035) Urine Protein (NEGATIVE) mg/dL Urine Glucose (UA) (NEGATIVE) mg/dL Urine Ketones (NEGATIVE) mg/dL Urine Occult Blood (NEGATIVE) Urine Nitrite (NEGATIVE) Urine Bilirubin (NEGATIVE) Urine Urobilinogen (<2.0) EU/dL Ur Leukocyte Esterase (NEGATIVE) 04/20/19 04/20/19 04/20/19 Range/Units 11:06 12:59 15:13 WBC (4.0-11.0) K/uL RBC (4.50-5.90) M/uL Hgb (13.0-17.0) g/dL Hct (38.0-50.0) % MCV (80.0-98.0) fL MCH (27.0-32.0) pg MCHC (31.0-37.0) g/dL RDW Std Deviation (28.0-62.0) fl RDW Coeff of Saeid (11.0-15.0) % Plt Count (150-400) K/uL MPV (7.40-12.00) fL Neut % (Auto) (48.0-80.0) % Lymph % (Auto) (16.0-40.0) % [place] % (Auto) (0.0-15.0) % Eos % (Auto) (0.0-7.0) % Baso % (Auto) (0.0-1.5) % Neut # (Auto) (1.4-5.7) K/uL Lymph # (Auto) (0.6-2.4) K/uL [place] # (Auto) (0.0-0.8) K/uL Eos # (Auto) (0.0-0.7) K/uL Baso # (Auto) (0.0-0.1) K/uL Nucleated RBC % /100WBC Nucleated RBCs # K/uL D-Dimer, Quantitative (0.0-0.50) mg/L FEU Lactate (0.20-2.00) mmol/L Sodium (136-148) mmol/L Potassium (3.5-5.1) mmol/L Chloride (98-107) mmol/L Carbon Dioxide (21.0-32.0) mmol/L BUN (7.0-18.0) mg/dL Creatinine (0.8-1.3) mg/dL Est Cr Clr Drug Dosing mL/min Estimated GFR (MDRD) ml/min Glucose (74-106) mg/dL POC Glucose 128 H (60-110) mg/dL Calcium (8.5-10.1) mg/dL Troponin I < 0.050 (0.000-0.056) ng/mL B-Natriuretic Peptide (<100) PG/ML Urine Color YELLOW Urine Appearance CLEAR Urine pH 6.0 (5.0-8.0) Ur Specific [place] 1.015 (1.001-1.035) Urine Protein NEGATIVE (NEGATIVE) mg/dL Urine Glucose (UA) >=1000 (NEGATIVE) mg/dL Urine Ketones NEGATIVE (NEGATIVE) mg/dL Urine Occult Blood NEGATIVE (NEGATIVE) Urine Nitrite NEGATIVE (NEGATIVE) Urine Bilirubin NEGATIVE (NEGATIVE) Urine Urobilinogen 0.2 (<2.0) EU/dL Ur Leukocyte Esterase NEGATIVE (NEGATIVE) 04/20/19 04/20/19 04/21/19 Range/Units 16:21 21:13 06:04 WBC (4.0-11.0) K/uL RBC (4.50-5.90) M/uL Hgb (13.0-17.0) g/dL Hct (38.0-50.0) % MCV (80.0-98.0) fL MCH (27.0-32.0) pg MCHC (31.0-37.0) g/dL RDW Std Deviation (28.0-62.0) fl RDW Coeff of Saeid (11.0-15.0) % Plt Count (150-400) K/uL MPV (7.40-12.00) fL Neut % (Auto) (48.0-80.0) % Lymph % (Auto) (16.0-40.0) % [place] % (Auto) (0.0-15.0) % Eos % (Auto) (0.0-7.0) % Baso % (Auto) (0.0-1.5) % Neut # (Auto) (1.4-5.7) K/uL Lymph # (Auto) (0.6-2.4) K/uL [place] # (Auto) (0.0-0.8) K/uL Eos # (Auto) (0.0-0.7) K/uL Baso # (Auto) (0.0-0.1) K/uL Nucleated RBC % /100WBC Nucleated RBCs # K/uL D-Dimer, Quantitative (0.0-0.50) mg/L FEU Lactate (0.20-2.00) mmol/L Sodium (136-148) mmol/L Potassium (3.5-5.1) mmol/L Chloride (98-107) mmol/L Carbon Dioxide (21.0-32.0) mmol/L BUN (7.0-18.0) mg/dL Creatinine (0.8-1.3) mg/dL Est Cr Clr Drug Dosing mL/min Estimated GFR (MDRD) ml/min Glucose (74-106) mg/dL POC Glucose 137 H 129 H (60-110) mg/dL Calcium (8.5-10.1) mg/dL Troponin I < 0.050 (0.000-0.056) ng/mL B-Natriuretic Peptide (<100) PG/ML Urine Color Urine Appearance Urine pH (5.0-8.0) Ur Specific [place] (1.001-1.035) Urine Protein (NEGATIVE) mg/dL Urine Glucose (UA) (NEGATIVE) mg/dL Urine Ketones (NEGATIVE) mg/dL Urine Occult Blood (NEGATIVE) Urine Nitrite (NEGATIVE) Urine Bilirubin (NEGATIVE) Urine Urobilinogen (<2.0) EU/dL Ur Leukocyte Esterase (NEGATIVE) 04/21/19 04/21/19 Range/Units 06:35 06:35 WBC 9.41 (4.0-11.0) K/uL RBC 4.00 L (4.50-5.90) M/uL Hgb 12.0 L (13.0-17.0) g/dL Hct 34.7 L (38.0-50.0) % MCV 86.8 (80.0-98.0) fL MCH 30.0 (27.0-32.0) pg MCHC 34.6 (31.0-37.0) g/dL RDW Std Deviation 42.2 (28.0-62.0) fl RDW Coeff of Saeid 13 (11.0-15.0) % Plt Count 202 (150-400) K/uL MPV 8.60 (7.40-12.00) fL Neut % (Auto) 72.8 (48.0-80.0) % Lymph % (Auto) 18.2 (16.0-40.0) % [place] % (Auto) 6.1 (0.0-15.0) % Eos % (Auto) 2.6 (0.0-7.0) % Baso % (Auto) 0.3 (0.0-1.5) % Neut # (Auto) 6.9 H (1.4-5.7) K/uL Lymph # (Auto) 1.7 (0.6-2.4) K/uL [place] # (Auto) 0.6 (0.0-0.8) K/uL Eos # (Auto) 0.2 (0.0-0.7) K/uL Baso # (Auto) 0.0 (0.0-0.1) K/uL Nucleated RBC % 0.0 /100WBC Nucleated RBCs # 0 K/uL D-Dimer, Quantitative (0.0-0.50) mg/L FEU Lactate (0.20-2.00) mmol/L Sodium 140 (136-148) mmol/L Potassium 3.3 L (3.5-5.1) mmol/L Chloride 104 (98-107) mmol/L Carbon Dioxide 24.0 (21.0-32.0) mmol/L BUN 10 (7.0-18.0) mg/dL Creatinine 0.7 L (0.8-1.3) mg/dL Est Cr Clr Drug Dosing 158.44 mL/min Estimated GFR (MDRD) > 60.0 ml/min Glucose 143 H (74-106) mg/dL POC Glucose (60-110) mg/dL Calcium 8.3 L (8.5-10.1) mg/dL Troponin I (0.000-0.056) ng/mL B-Natriuretic Peptide (<100) PG/ML Urine Color Urine Appearance Urine pH (5.0-8.0) Ur Specific [place] (1.001-1.035) Urine Protein (NEGATIVE) mg/dL Urine Glucose (UA) (NEGATIVE) mg/dL Urine Ketones (NEGATIVE) mg/dL Urine Occult Blood (NEGATIVE) Urine Nitrite (NEGATIVE) Urine Bilirubin (NEGATIVE) Urine Urobilinogen (<2.0) EU/dL Ur Leukocyte Esterase (NEGATIVE) Cecil Results Last 24 Hours: Microbiology 04/20/19 11:06 Streptococcus pneumoniae Antigen (M - Final Urine 04/20/19 11:06 Legionella Urinary Antigen - Final Urine 04/20/19 17:10 Gram Stain - Final Sputum - Expectorated 04/20/19 12:24 Influenza Type A Antigen Screen - Final Nasopharyngeal Swab NEGATIVE INFLUENZA A VIRUS AG REFERENCE RANGE: NEGATIVE Influenza Type B Antigen Screen - Final NEGATIVE INFLUENZA B VIRUS AG REFERENCE RANGE: NEGATIVE Med Orders - Current: Current Medications Acetaminophen (Tylenol) 650 mg PO Q4H PRN PRN Reason: Pain (mild 1-3) Last Admin: 04/21/19 08:51 Dose: 650 mg Albuterol/Ipratropium (Duoneb 3.0-0.5 Mg/3 Ml) 3 ml NEB Q4HRRT [facility] Last Admin: 04/21/19 10:00 Dose: 3 ml Amlodipine Besylate (Norvasc) 10 mg PO DAILY [facility] Last Admin: 04/21/19 08:18 Dose: 10 mg Azithromycin (Zithromax) 500 mg PO Q24H [facility] Last Admin: 04/21/19 08:18 Dose: 500 mg Docusate Sodium (Colace) 100 mg PO BID PRN PRN Reason: Constipation Enoxaparin Sodium (Lovenox) 40 mg SUBCUT Q24H [facility] Last Admin: 04/20/19 15:17 Dose: 40 mg Fluticasone Propionate (Flonase) 0 gm NASBOTH DAILY [facility] Last Admin: 04/21/19 08:17 Dose: 2 spray Ceftriaxone Sodium/Dextrose 1 (gm/ Premix) 50 mls @ 100 mls/hr IV Q24H [facility] Last Admin: 04/20/19 12:20 Dose: 100 mls/hr Pantoprazole Sodium 40 mg/ (Sodium Chloride) 10 mls @ 300 mls/hr IV Q24H [facility] Last Admin: 04/20/19 12:07 Dose: 300 mls/hr Sodium Chloride (Normal Saline) 1,000 mls @ 125 mls/hr IV ASDIRECTED [facility] Last Admin: 04/21/19 03:22 Dose: 125 mls/hr Insulin Aspart (Novolog) 0 unit SUBCUT TIDAC [facility]; Protocol Last Admin: 04/21/19 06:45 Dose: Not Given Methylprednisolone Sodium Succinate (Solu-Medrol) 40 mg IVPUSH Q12H [facility] Last Admin: 04/21/19 10:28 Dose: 40 mg Nitroglycerin (Nitrostat) 0.4 mg SL Q5M PRN PRN Reason: Chest Pain Omeprazole (Omeprazole) 40 mg PO ACBREAKFAST [facility] Last Admin: 04/21/19 06:29 Dose: 40 mg Ondansetron HCl (Zofran) 4 mg IVPUSH Q4H PRN PRN Reason: Nausea Fenofibrate Nanocrystallized 160 Mg 1 each PO DAILY [facility] Last Admin: 04/21/19 09:14 Dose: 1 each Fluticasone/Salmeterol (Advair Diskus 100-50) 1 puff INH BID [facility] Last Admin: 04/21/19 09:09 Dose: 1 puff Sertraline HCl (Zoloft) 100 mg PO DAILY [facility] Last Admin: 04/21/19 08:18 Dose: 100 mg Discontinued Medications Aspirin (Aspirin) 324 mg PO ONETIME ONE Stop: 04/20/19 09:27 Last Admin: 04/20/19 09:30 Dose: 324 mg Sodium Chloride (Normal Saline) 1,000 mls @ 999 mls/hr IV .Bolus ONE Stop: 04/20/19 10:22 Last Admin: 04/20/19 09:25 Dose: 999 mls/hr Azithromycin 500 mg/ Sodium (Chloride) 250 mls @ 250 mls/hr IV ONETIME [facility] Last Admin: 04/20/19 11:11 Dose: 250 mls/hr Sodium Chloride (Normal Saline) 1,000 mls @ 125 mls/hr IV ASDIRECTED [facility] Last Admin: 04/20/19 11:11 Dose: 125 mls/hr Metoprolol Tartrate (Lopressor) 5 mg IVPUSH Q5M SIMA Stop: 04/20/19 09:56 Last Admin: 04/20/19 12:51 Dose: Not Given - Exam General: Alert, Oriented, Cooperative, No Acute Distress Neck: Supple. No: Lymphadenopathy Lungs: Normal Respiratory Effort, Decreased Breath Sounds (bibasilar) Cardiovascular: Regular Rate, Regular Rhythm GI/Abdominal Exam: Normal Bowel Sounds, Soft, Non-Tender Extremities: Normal Inspection, Normal Range of Motion, Non-Tender, No Pedal Edema Neurological: No New Focal Deficit Psy/Mental Status: Alert, Normal Affect, Normal Mood - Problem List & Annotations (1) Chest pain SNOMED Code(s): 85397874 Code(s): R07.9 - CHEST PAIN, UNSPECIFIED Status: Acute Current Visit: Yes (2) CAP (community acquired pneumonia) SNOMED Code(s): 053827240 Code(s): J18.9 - PNEUMONIA, UNSPECIFIED ORGANISM Status: Acute Current Visit: Yes (3) Acute sinusitis SNOMED Code(s): 66939033 Code(s): J01.90 - ACUTE SINUSITIS, UNSPECIFIED Status: Acute Current Visit: Yes (4) HTN (hypertension) SNOMED Code(s): 83860642 Code(s): I10 - ESSENTIAL (PRIMARY) HYPERTENSION Status: Chronic Current Visit: Yes (5) Leukocytosis SNOMED Code(s): 198252870, 186467442 Code(s): D72.829 - ELEVATED WHITE BLOOD CELL COUNT, UNSPECIFIED Status: Acute Current Visit: Yes (6) DM type 2 (diabetes mellitus, type 2) SNOMED Code(s): 33319592 Code(s): E11.9 - TYPE 2 DIABETES MELLITUS WITHOUT COMPLICATIONS Status: Chronic Current Visit: Yes Qualifiers: Diabetes mellitus manager long term care insulin use: without manager long term care use - Problem List Review Problem List Initiated/Reviewed/Updated: Yes - My Orders Last 24 Hours: My Active Orders 04/20/19 11:29 Telemetry Monitoring [Cardiac Monitoring] [RC] Q8H 04/20/19 11:30 Ambulate [RC] ASDIRECTED Height and Weight [RC] DAILY Oxygen Therapy [RC] PRN Up With Assistance [RC] ASDIRECTED VTE/DVT Education [RC] PER UNIT ROUTINE Vital Signs [RC] Q4H Acetaminophen [Tylenol] 650 mg PO Q4H PRN Albuterol/Ipratropium [DuoNeb 3.0-0.5 MG/3 ML] 3 ml NEB Q4HRRT Docusate Sodium [Colace] 100 mg PO BID PRN Ondansetron [Zofran] 4 mg IVPUSH Q4H PRN Pantoprazole [ProTONIX IV] 40 mg Sodium Chloride 0.9% [Normal Saline] 10 ml IV Q24H cefTRIAXone [Rocephin in Dextrose,Iso-Osm 1 GM/50 ML] 1 gm Premix Bag 1 bag IV Q24H Resuscitation Status Routine 04/20/19 11:31 Intake and Output [RC] Q12H 04/20/19 11:32 RT Aerosol Therapy [RC] ASDIRECTED 04/20/19 11:37 Blood Glucose Check, Bedside [RC] TIDAC 04/20/19 11:45 Insulin Aspart [NovoLOG] See Protocol SUBCUT TIDAC 04/20/19 12:58 Sodium Chloride 0.9% [Normal Saline] 1,000 ml IV ASDIRECTED 04/20/19 13:17 Echo Comp wo Cont [US] Urgent 04/20/19 14:15 Enoxaparin [Lovenox] 40 mg SUBCUT Q24H Fluticasone Propionate [Flonase] See Dose Instructions NASBOTH DAILY 04/20/19 17:10 CULTURE SPUTUM + SMEAR [RM] Stat 04/20/19 Lunch [place] [employer] Diet [DIET] 04/21/19 07:30 Omeprazole 40 mg PO ACBREAKFAST 04/21/19 08:47 RT Post Treatment Assessment [RC] Click to Edit RT Pre-Treatment Assessment [RC] Click to Edit 04/21/19 09:00 Azithromycin [Zithromax] 500 mg PO Q24H Fluticasone/Salmeterol [Advair Diskus 100-50] 1 puff INH BID Patient's Own Medication [Ptom] 1 each PO DAILY Sertraline [Zoloft] 100 mg PO DAILY amLODIPine [Norvasc] 10 mg PO DAILY 04/21/19 09:56 Ang Chest [CT] Urgent 04/21/19 10:15 methylPREDNISolone Sod Succ [Solu-MEDROL] 40 mg IVPUSH Q12H - Plan Plan:: This 48 year old male admitted with chest pain rule out ACS, suspected CAP and acute sinusitis 1.Chest pain: Continue with deep breathing, likely not cardiac in nature. Troponins negative and no events on Telemetry. Will need outpatient stress test. ECHO normal. Recent labwork with PCP revealed Triglycerides 331, HDL 30 LDL 90, Total cholesterol 186. A1c 7.6. 2. Suspected CAP: Hypoxia continues, on 2 L NC. Continue Azithromycin and Rocephin. BC pending. Sputum pending. Legionella and strep antigens pending. Will encourage IS. Duonebs every 4 hours. Obtain CTA of chest to further evaluate due to continued hypoxia. Add Solumderol 40 mg Q12hr IV 3. Acute sinusitis: slow improvement. Continue Flonase. Will monitor. 4. DM Type 2: Hold PO medications. Novolog SSI and checking BS with meals. 5.HTN: Stable, will monitor. Continue Norvasc. VTE prophylaxis: Lovenox. Dispo: 1-2 days
[2019-04-21] MEDS: Pantoprazole 40 MG in Sodium Chloride 0.9% 10 ML IV SCH (11:24)
[2019-04-21] MEDS ORDERED: Iopamidol 755 MG/ML 500 ML Multipack Bottle IVPUSH STA (11:32)
[2019-04-21] MEDS: cefTRIAXone 1 GM in Premix Bag 1 BAG IV SCH (11:32)
--- NOTE | 2019-04-21 12:45 | CT ---
CT chest Technique: Multiple axial sections through the chest were obtained. Intravenous contrast was utilized. Study performed as a pulmonary angiogram protocol. Findings: Pulmonary arteries are not optimally opacified. No filling defects are seen within the main or segmental branches or proximal subsegmental branches but very distal subsegmental pulmonary emboli could be missed. Mediastinum and hilar regions show no adenopathy. Aorta shows no aneurysm. No pericardial thickening is seen. Visualized portions of the upper abdominal structures show no discrete abnormality. Patchy increased density is noted within the left upper lung and left lower lung. Right lung is clear. Bone window settings were reviewed which shows mild degenerative endplate spurring within the spine. Impression: 1. Patchy areas of increased density within left upper and left lower lung. Please correlate if patient has any infectious symptoms for this to represent patchy areas of pneumonia. 2. Slightly less than optimal opacification of the pulmonary arteries. As noted above, no findings of pulmonary embolism are seen within the main or segmental branches or proximal subsegmental branches. More distal subsegmental pulmonary emboli could be missed. 3. Other findings as described above believed to be incidental. Diagnostic code #3 MTDD
--- NOTE | 2019-04-21 13:59 | ECHO ---
EXAM DATE: 04/20/19 PATIENT'S AGE: 48 The echocardiogram report can be seen in this patient's EMR (Electronic Medical Record) in the Reports section. The report has also been scanned into PACs. SADA
[2019-04-21] MEDS: Enoxaparin 40 MG/0.4 ML Syringe SUBCUT SCH (14:13)
[2019-04-22] MEDS: Albuterol/Ipratropium 3.0-0.5 MG/3 ML Neb Soln NEB SCH ×3 (02:14→09:40)
[2019-04-22 06:25] LABS: BLOOD UREA NITROGEN,BUN 14 mg/dL (7.0-18.0); CARBON DIOXIDE,CO2 23.1 mmol/L (21.0-32.0); CHLORIDE,CL 101 mmol/L (98-107); GLUCOSE RANDOM 198 mg/dL (74-106); POTASSIUM,K 4.8 mmol/L (3.5-5.1); SODIUM,NA 138 mmol/L (136-148)
[2019-04-22] MEDS: Omeprazole 20 MG Cap.CR PO SCH (07:04)
[2019-04-22] MEDS: Insulin Aspart 100 Units/ML 3 ML Pen SUBCUT SCH ×2 (07:09→11:21)
[2019-04-22] MEDS: amLODIPine 5 MG Tab PO SCH (08:32)
[2019-04-22] MEDS: Azithromycin 250 MG Tab PO SCH (08:33)
[2019-04-22] MEDS: Sertraline 100 MG Tab PO SCH (08:33)
[2019-04-22] MEDS: FENOFIBRATE NANOCRYSTALLIZED 160 MG PO SCH (08:34)
[2019-04-22] MEDS: Fluticasone Propionate Nasal Spray 16 GM Bottle NASBOTH SCH (08:35)
[2019-04-22] MEDS: methylPREDNISolone Sodium Succinate 40 MG/1 ML SDV IVPUSH SCH (09:36)
[2019-04-22] MEDS: Fluticasone/Salmeterol 100-50 MCG Inhalation Powder 14/Diskus INH SCH (09:40)
[2019-04-22] MEDS ORDERED: Sodium Chloride 0.9% 250 ML IV STA (10:12)
--- NOTE | 2019-04-22 10:56 | PCM.DCSUM1 ---
Discharge Summary - Hospital Course Brief History: This 48 year old male with pmh of HTN, dyslipidemia, GERD, DM type 2, ARDS with intubation and ICU stay in 2014 presented to the ED with concerns of chest pain that woke him up around 0200 am this morning. He reports he has not felt well for the last week or so. He was seen by his PCP April 08, influenza was obtained which was negative. VS were stable then and felt it was viral in nature. Today the chest pain woke him up, it was sharp to his left medial chest with radiation to his L neck and L ear with associated shortness of breath and mild diaphoresis. reports the pain worsens with deep breathing. He reports he has been having this sweating on and off the last couple days. He reports sinus congestion, mild ear fullness. No sore throat. He reports coughing and shortness of breath, cough is non productive. He denies abdominal pain or troubles urinating. Reports having increase in diarrhea and actually had stool samples sent last week with Dr Edmonds, so far these are appearing negative. He reports he is eating and drinking well. He reports dyslipidemia, no CAD. No hx NH or CVA. Reports DM Type 2 that is controlled. He chews 1 tin of chewing tobacco every couple days, no alcohol use and no recreational drug use. reports he is being worked up for LUIS and has this scheduled already due to waking up SOB during the night. He also has follow up regarding bowel habit changes next month as well. In the ED leukocytosis noted at 15, 470. UA negative. BMP WNL, glucose elevated at 187. Troponin negative. D Dimer 0.21. BNP 22. CXR negative. EKG reveals RBBB no acute ST or T wave changes. Upon arrival to ED HR tachycardic 133 with BP 150/100s. He was given Lopressor and BP decreased to 130-150/90s. He was given ASA as well. He was noted to be hypoxic with sats in mid 80s, on 2 L NC sats improved to mid 90s. BC obtained. Azithromycin given in ED. He will be admitted for chest pain rule out, possible CAP and hypoxia. PCP, Dr Edmonds. - Discharge Data Discharge Date: 04/22/19 Discharge Disposition: Home, Self-Care 01 Condition: Fair - Referral to Home Health Primary Care Physician: Robbie Edmonds MD - Discharge Diagnosis/Problem(s) (1) Chest pain SNOMED Code(s): 37244031 ICD Code: R07.9 - CHEST PAIN, UNSPECIFIED Status: Acute Current Visit: Yes (2) CAP (community acquired pneumonia) SNOMED Code(s): 527829172 ICD Code: J18.9 - PNEUMONIA, UNSPECIFIED ORGANISM Status: Acute Current Visit: Yes (3) Acute sinusitis SNOMED Code(s): 84255749 ICD Code: J01.90 - ACUTE SINUSITIS, UNSPECIFIED Status: Acute Current Visit: Yes (4) HTN (hypertension) SNOMED Code(s): 87432842 ICD Code: I10 - ESSENTIAL (PRIMARY) HYPERTENSION Status: Chronic Current Visit: Yes (5) Leukocytosis SNOMED Code(s): 235455864, 248609491 ICD Code: D72.829 - ELEVATED WHITE BLOOD CELL COUNT, UNSPECIFIED Status: Acute Current Visit: Yes (6) DM type 2 (diabetes mellitus, type 2) SNOMED Code(s): 76324085 ICD Code: E11.9 - TYPE 2 DIABETES MELLITUS WITHOUT COMPLICATIONS Status: Chronic Current Visit: Yes Qualifiers: Diabetes mellitus termite exterminator helper insulin use: without termite exterminator helper use - Patient Instructions Diet: Diabetic Diet Activity: As Tolerated, No Strenuous Activities, Rest and Relax Today Showering/Bathing: May Shower Notify Provider of: Fever, Increased Pain, Swelling and Redness, Drainage, Nausea and/or Vomiting - Discharge Plan *PRESCRIPTION DRUG MONITORING PROGRAM REVIEWED*: Not Applicable *COPY OF PRESCRIPTION DRUG MONITORING REPORT IN PATIENT GENNY: Not Applicable Prescriptions/Med Rec: Azithromycin [Zithromax] 500 mg PO Q24H #8 tablet Fluticasone/Salmeterol [Advair 100-50] 1 puff INH BID #1 diskus predniSONE [Prednisone] 40 mg PO DAILY #6 tablet Home Medications: Home Meds Fenofibrate Nanocrystallized [Tricor] 160 mg PO DAILY 01/08/15 [History] Sertraline [Zoloft] 100 mg PO DAILY 01/08/15 [History] amLODIPine [Norvasc] 10 mg PO DAILY 01/08/15 [History] Diclofenac Sodium [Voltaren] 75 mg PO TID PRN 04/20/19 [History] Dulaglutide [Trulicity] 1.5 mg IM WEEKLY 04/20/19 [History] Empagliflozin/Metformin HCl [Synjardy 12.5-1,000 mg Tablet] 12.5 mg PO DAILY [History] Naproxen Sodium [Aleve] 220 mg PO ASDIRECTED 04/20/19 [History] Omeprazole 40 mg PO DAILY 04/20/19 [History] Azithromycin [Zithromax] 500 mg PO Q24H #8 tablet 04/22/19 [Rx] Fluticasone Propionate [Flonase] 1 spray NASBOTH DAILY bottle 04/22/19 [Rx] Fluticasone/Salmeterol [Advair 100-50] 1 puff INH BID #1 diskus 04/22/19 [Rx] predniSONE [Prednisone] 40 mg PO DAILY #6 tablet 04/22/19 [Rx] Oxygen Therapy Mode: Room Air Referrals: Robbie Edmonds MD [Primary Care Provider] - - Discharge Summary/Plan Comment DC Time >30 min.: No Discharge Summary/Plan Comment: Admitting Diagnoses: Dyspnea Hypoxia CAP-suspected Discharge Diagnoses: CAP Reactive airways disease- suspected Other PMH: Depression HTN Hx ARDS 2014 with intubation Елена jeffery admitted initially for atypical chest pain, which was noted mainly with inspiration. CXR negative. He was ruled out for ACS with negative troponin x 3. He was noted though to be hypoxic on RA with sats in the mid 80s on admission. Due to history of ARDS and with hisotry of 10 days+ of not feeling well we opted to treated for suspected CAP with Azithromycin and Rocephin. We also added Solumedrol and Advair on day two of admission due to little progression. No wheezing heard, but airways sound slightly tight. Once these were included he was able to be weaned off oxygen and is feeling much improved today. He is ambulatory without oxygen and maintaining saturations in mid 90s on room air. He reports sinus congestion has improved as well as dyspnea, no further pleuritic chest pain since last evening. He hasn't been coughing much anymore. Blood cultures negative. Sputum culture negative. Legionella and strep pneumoniae urine antigen negative. Influenza negative as well. He will be discharged home today. He will have follow up with Pulmonology as he may have some reactive airway disease secondary to hx of ARDS. Will arrange PFT as well. Chest pain likely secondary to CAP and reactive airway, would recommend follow up with Cardiology to discuss need for stress test. He will be discharged home on Azithromycin and 4 day Prednisone of 40 mg. He and verbalized understanding of diagnoses and medications. He is to also follow up with PCP in 1 week to insure he is doing well. He was counseled to return to ED or clinic if concerns should arise. - General Info Date of Service: 04/22/19 Admission Dx/Problem (Free Text: Admission Diagnosis/Problem Admission Diagnosis/Problem Chest pain Subjective Update: Feeling improved today, no concerns. No chest pain or dyspnea. Eating and drinking well. Eager for discharge home. Functional Status: Reports: Pain Controlled, Tolerating Diet, Ambulating - Review of Systems HEENT: Reports: No Symptoms. Denies: Headaches, Visual Changes Pulmonary: Reports: No Symptoms. Denies: Shortness of Breath Cardiovascular: Reports: No Symptoms. Denies: Chest Pain Gastrointestinal: Reports: No Symptoms. Denies: Abdominal Pain, Diarrhea, Nausea, Vomiting Genitourinary: Reports: No Symptoms. Denies: Dysuria, Frequency, Burning Musculoskeletal: Reports: No Symptoms Skin: Reports: No Symptoms Neurological: Reports: No Symptoms Psychiatric: Reports: No Symptoms - Patient Data Vitals - Most Recent: Last Vital Signs Temp 97.4 F 04/22/19 07:40 Pulse 90 04/22/19 07:40 Resp 18 04/22/19 07:40 BP 117/74 04/22/19 08:32 Pulse Ox 98 04/22/19 07:40 Weight - Most Recent: 120.457 kg I&O - Last 24 hours: Intake & Output 04/21/19 04/22/19 04/22/19 22:59 06:59 14:59 Intake Total 2433 1890 Output Total 1245 2620 Balance 1188 -730 Lab Results - Last 24 hrs: Laboratory Results - last 24 hr 04/21/19 04/21/19 04/21/19 Range/Units 06:35 11:21 16:07 WBC (4.0-11.0) K/uL RBC (4.50-5.90) M/uL Hgb (13.0-17.0) g/dL Hct (38.0-50.0) % MCV (80.0-98.0) fL MCH (27.0-32.0) pg MCHC (31.0-37.0) g/dL RDW Std Deviation (28.0-62.0) fl RDW Coeff of Saeid (11.0-15.0) % Plt Count (150-400) K/uL MPV (7.40-12.00) fL Neut % (Auto) (48.0-80.0) % Lymph % (Auto) (16.0-40.0) % Fallon % (Auto) (0.0-15.0) % Eos % (Auto) (0.0-7.0) % Baso % (Auto) (0.0-1.5) % Neut # (Auto) (1.4-5.7) K/uL Lymph # (Auto) (0.6-2.4) K/uL Fallon # (Auto) (0.0-0.8) K/uL Eos # (Auto) (0.0-0.7) K/uL Baso # (Auto) (0.0-0.1) K/uL Nucleated RBC % /100WBC Nucleated RBCs # K/uL Sodium (136-148) mmol/L Potassium (3.5-5.1) mmol/L Chloride (98-107) mmol/L Carbon Dioxide (21.0-32.0) mmol/L BUN (7.0-18.0) mg/dL Creatinine (0.8-1.3) mg/dL Est Cr Clr Drug Dosing mL/min Estimated GFR (MDRD) ml/min Glucose (74-106) mg/dL POC Glucose 152 H 152 H (60-110) mg/dL Calcium (8.5-10.1) mg/dL C-Reactive Protein 10.20 H (0.00-0.90) mg/dL 04/22/19 04/22/19 04/22/19 Range/Units 05:58 05:58 06:02 WBC 9.53 (4.0-11.0) K/uL RBC 4.33 L (4.50-5.90) M/uL Hgb 12.8 L (13.0-17.0) g/dL Hct 37.5 L (38.0-50.0) % MCV 86.6 (80.0-98.0) fL MCH 29.6 (27.0-32.0) pg MCHC 34.1 (31.0-37.0) g/dL RDW Std Deviation 42.1 (28.0-62.0) fl RDW Coeff of Saeid 13 (11.0-15.0) % Plt Count 244 (150-400) K/uL MPV 9.00 (7.40-12.00) fL Neut % (Auto) 86.8 H (48.0-80.0) % Lymph % (Auto) 10.6 L (16.0-40.0) % Fallon % (Auto) 2.5 (0.0-15.0) % Eos % (Auto) 0.0 (0.0-7.0) % Baso % (Auto) 0.1 (0.0-1.5) % Neut # (Auto) 8.3 H (1.4-5.7) K/uL Lymph # (Auto) 1.0 (0.6-2.4) K/uL Fallon # (Auto) 0.2 (0.0-0.8) K/uL Eos # (Auto) 0.0 (0.0-0.7) K/uL Baso # (Auto) 0.0 (0.0-0.1) K/uL Nucleated RBC % 0.0 /100WBC Nucleated RBCs # 0 K/uL Sodium 138 (136-148) mmol/L Potassium 4.8 (3.5-5.1) mmol/L Chloride 101 (98-107) mmol/L Carbon Dioxide 23.1 (21.0-32.0) mmol/L BUN 14 (7.0-18.0) mg/dL Creatinine 0.7 L (0.8-1.3) mg/dL Est Cr Clr Drug Dosing 158.44 mL/min Estimated GFR (MDRD) > 60.0 ml/min Glucose 198 H (74-106) mg/dL POC Glucose 172 H (60-110) mg/dL Calcium 9.7 (8.5-10.1) mg/dL C-Reactive Protein (0.00-0.90) mg/dL ADITI Results - Last 24 hrs: Microbiology 04/20/19 10:49 Aerobic Blood Culture - Preliminary Blood - Venous - Lab Draw NO GROWTH AFTER 2 DAYS Anaerobic Blood Culture - Preliminary NO GROWTH AFTER 2 DAYS 04/20/19 10:41 Aerobic Blood Culture - Preliminary Blood - Venous NO GROWTH AFTER 2 DAYS Anaerobic Blood Culture - Preliminary NO GROWTH AFTER 2 DAYS 04/20/19 17:10 Gram Stain - Final Sputum - Expectorated Sputum Culture - Final Normal Respiratory Hermila 04/20/19 11:06 Streptococcus pneumoniae Antigen (M - Final Urine 04/20/19 11:06 Legionella Urinary Antigen - Final Urine Med Orders - Current: Current Medications Acetaminophen (Tylenol) 650 mg PO Q4H PRN PRN Reason: Pain (mild 1-3) Last Admin: 04/21/19 08:51 Dose: 650 mg Albuterol/Ipratropium (Duoneb 3.0-0.5 Mg/3 Ml) 3 ml NEB Q4HRRT [facility] Last Admin: 04/22/19 09:40 Dose: 3 ml Amlodipine Besylate (Norvasc) 10 mg PO DAILY [facility] Last Admin: 04/22/19 08:32 Dose: 10 mg Azithromycin (Zithromax) 500 mg PO Q24H [facility] Last Admin: 04/22/19 08:33 Dose: 500 mg Docusate Sodium (Colace) 100 mg PO BID PRN PRN Reason: Constipation Enoxaparin Sodium (Lovenox) 40 mg SUBCUT Q24H [facility] Last Admin: 04/21/19 14:13 Dose: 40 mg Fluticasone Propionate (Flonase) 0 gm NASBOTH DAILY [facility] Last Admin: 04/22/19 08:35 Dose: 2 spray Ceftriaxone Sodium/Dextrose 1 (gm/ Premix) 50 mls @ 100 mls/hr IV Q24H [facility] Last Admin: 04/21/19 11:32 Dose: 100 mls/hr Pantoprazole Sodium 40 mg/ (Sodium Chloride) 10 mls @ 300 mls/hr IV Q24H [facility] Last Admin: 04/21/19 11:24 Dose: 300 mls/hr Insulin Aspart (Novolog) 0 unit SUBCUT TIDAC [facility]; Protocol Last Admin: 04/22/19 07:09 Dose: 1 units Methylprednisolone Sodium Succinate (Solu-Medrol) 40 mg IVPUSH Q12H [facility] Last Admin: 04/22/19 09:36 Dose: 40 mg Nitroglycerin (Nitrostat) 0.4 mg SL Q5M PRN PRN Reason: Chest Pain Omeprazole (Omeprazole) 40 mg PO ACBREAKFAST [facility] Last Admin: 04/22/19 07:04 Dose: 40 mg Ondansetron HCl (Zofran) 4 mg IVPUSH Q4H PRN PRN Reason: Nausea Fenofibrate Nanocrystallized 160 Mg 1 each PO DAILY [facility] Last Admin: 04/22/19 08:34 Dose: 1 each Fluticasone/Salmeterol (Advair Diskus 100-50) 1 puff INH BID [facility] Last Admin: 04/22/19 09:40 Dose: 1 inhalation Sertraline HCl (Zoloft) 100 mg PO DAILY [facility] Last Admin: 04/22/19 08:33 Dose: 100 mg Discontinued Medications Aspirin (Aspirin) 324 mg PO ONETIME ONE Stop: 04/20/19 09:27 Last Admin: 04/20/19 09:30 Dose: 324 mg Sodium Chloride (Normal Saline) 1,000 mls @ 999 mls/hr IV .Bolus ONE Stop: 04/20/19 10:22 Last Admin: 04/20/19 09:25 Dose: 999 mls/hr Azithromycin 500 mg/ Sodium (Chloride) 250 mls @ 250 mls/hr IV ONETIME [facility] Last Admin: 04/20/19 11:11 Dose: 250 mls/hr Sodium Chloride (Normal Saline) 1,000 mls @ 125 mls/hr IV ASDIRECTED [facility] Last Admin: 04/20/19 11:11 Dose: 125 mls/hr Sodium Chloride (Normal Saline) 1,000 mls @ 125 mls/hr IV ASDIRECTED [facility] Last Admin: 04/21/19 12:48 Dose: 125 mls/hr Sodium Chloride (Normal Saline) 250 mls @ 999 mls/hr IV NOW STA Stop: 04/22/19 10:27 Iopamidol (Isovue Multipack-370 (76%)) 80 ml IVPUSH ONETIME STA Stop: 04/21/19 11:33 Last Admin: 04/21/19 11:32 Dose: 80 ml Metoprolol Tartrate (Lopressor) 5 mg IVPUSH Q5M [facility] Stop: 04/20/19 09:56 Last Admin: 04/20/19 12:51 Dose: Not Given - Exam General: Reports: Alert, Oriented, Cooperative, No Acute Distress Lungs: Reports: Clear to Auscultation, Normal Respiratory Effort. Denies: Rhonchi, Wheezing Cardiovascular: Reports: Regular Rate, Regular Rhythm Extremities: Normal Inspection, Normal Range of Motion Psy/Mental Status: Reports: Alert, Normal Affect, Normal Mood
[2019-04-22] MEDS: cefTRIAXone 1 GM in Premix Bag 1 BAG IV SCH (11:11)
[2019-04-22 11:44] VITALS: BP 134/79; PULSE 91
[2019-04-22] MEDS: Pantoprazole 40 MG in Sodium Chloride 0.9% 10 ML IV SCH (12:00)
== END 2019-04-22 13:32 | disposition home or self-care (01) ==
LOC: MW.ED 09:07 → MW.MS 10:37
PROVIDERS: ADMIT Student in an Organized Health Care Education/Training Program; ATTEND Student in an Organized Health Care Education/Training Program
DX: R07.89 Other chest pain (principal); J18.9 Pneumonia, unspecified organism; J01.90 Acute sinusitis, unspecified; I10 Essential (primary) hypertension; D72.829 Elevated white blood cell count, unspecified; E11.9 Type 2 diabetes mellitus without complications; K21.9 Gastro-esophageal reflux disease without esophagitis; E78.5 Hyperlipidemia, unspecified; F32.9 Major depressive disorder, single episode, unspecified; E66.9 Obesity, unspecified; Z87.891 Personal history of nicotine dependence; Z79.899 Other long term (current) drug therapy; Z87.09 Personal history of other diseases of the respiratory system
CPT/HCPCS: 36415; 71045; 71275; 80048; 80053; 81003; 82962; 83605; 83880; 84484; 85025; 85379; 85610; 86140; 87040; 87070; 87205; 87804; 87899; 93005; 93306; 94640; 94664; 96361; 96365; 96367; 96372; 96375; 96376; 99285; A9270; C9113; G0378; J0456; J0696; J1650; J1815; J2920; J3490; J7040; J7050; Q9967; J7620-GY

== ENCOUNTER 2023-06-01 19:03 | Observation (INO) | payer BC, OTHER ==
[2023-06-01] MEDS ORDERED: Sodium Chloride 0.9% 10 ML Syringe FLUSH PRN ×2 (19:35→23:54)
[2023-06-01] MEDS ORDERED: Sodium Chloride 0.9% 2.5 ML Syringe FLUSH PRN ×2 (19:35→23:54)
[2023-06-01] MEDS ORDERED: Lactated Ringers 1,000 ML IV ONE (19:35)
[2023-06-01] MEDS ORDERED: Iopamidol 755 MG/ML 500 ML Multipack Bottle IVPUSH ONE (19:52)
[2023-06-01 19:54] LABS: BASOPHILS ABSOLUTE AUTO 0.06 K/uL (0.00-0.20); BASOPHILS PERCENT AUTO 0.3 % (0.0-1.0); EOSINOPHILS ABSOLUTE AUTO 0.24 K/uL (0.00-0.45); EOSINOPHILS PERCENT AUTO 1.2 % (0.0-6.0); HEMOGLOBIN 11.7 g/dL (14.0-18.0); IMMATURE GRAN ABSOLUTE AUTO 0.26 K/uL (0.00-0.05); IMMATURE GRAN PERCENT AUTO 1.3 % (0.0-0.4); LYMPHOCYTES ABSOLUTE AUTO 0.72 K/uL (1.00-4.80); LYMPHOCYTES PERCENT AUTO 3.7 % (24.0-44.0); MEAN CORPUSCULAR HEMOGLOBIN 29.7 pg (28.0-32.0); MEAN CORPUSCULAR HGB CONC 35.5 g/dL (32.0-36.0); MEAN CORPUSCULAR VOLUME 83.8 fL (83.0-99.0); MEAN PLATELET VOLUME 8.5 fL (9.4-12.4); MONOCYTES ABSOLUTE AUTO 1.11 K/uL (0.00-0.80); MONOCYTES PERCENT AUTO 5.7 % (0.0-8.0); NEUTROPHILS PERCENT AUTO 87.8 % (41.0-71.0); PLATELET COUNT,PLT 331 K/uL (150-400); RED BLOOD CELL COUNT 3.94 M/uL (4.52-5.90); WHITE BLOOD CELL COUNT,WBC 19.59 K/uL (3.9-11.3)
[2023-06-01 20:15] LABS: BASE EXCESS VENOUS -1.9 (-2.0-3.0); PH,VENOUS 7.44 (7.31-7.41)
[2023-06-01 20:28] LABS: INR 1.04 (0.86-1.11)
[2023-06-01] MEDS ORDERED: Cefepime 2 GM Vial IVPUSH ONE (20:29)
[2023-06-01 20:41] LABS: A/G RATIO 0.7 (0.9-1.6); ALBUMIN 2.9 g/dL (3.4-5.0); BILIRUBIN TOTAL 0.5 mg/dL (0.2-1.0); CALCIUM 8.8 mg/dL (8.5-10.1); CARBON DIOXIDE,CO2 22.4 mmol/L (21.0-32.0); EST CRCL DRUG DOSING (CG) 106.09 mL/min; PROTEIN TOTAL,TP 6.9 g/dL (6.4-8.2)
[2023-06-01 20:48] LABS: LACTIC ACID 1.2 mmol/L (0.4-2.0)
[2023-06-01] MEDS: VANCOmycin 1.5 GM/300 ML 1.5 GM in Premix Bag 1 BAG IV SCH (21:13)
[2023-06-01 21:21] LABS: APPEARANCE,URINE CLEAR; BILIRUBIN,URINE NEGATIVE (NEGATIVE); COLOR,URINE YELLOW; GLUCOSE,URINE >=1000 mg/dL (NEGATIVE); KETONES,URINE NEGATIVE (NEGATIVE); LEUKOCYTE ESTERASE,URINE NEGATIVE (NEGATIVE); NITRITE,URINE NEGATIVE (NEGATIVE); OCCULT BLOOD,URINE TRACE-INTACT (NEGATIVE); PH,URINE 5.5 (5.0-8.0); PROTEIN,URINE NEGATIVE (NEGATIVE)
[2023-06-01 21:37] LABS: BACTERIA,URINE RARE (NEGATIVE); EPITHELIAL CELLS,URINE RARE (NONE-FEW); RBC,URINE 0-2 (0-2/HPF); WBC,URINE 0-1 (0-5/HPF)
[2023-06-01] MEDS ORDERED: Morphine 2 MG/ML SYRINGE IVPUSH PRN (23:54)
[2023-06-01] MEDS ORDERED: oxyCODONE 5 MG Tab PO PRN (23:54)
[2023-06-01] MEDS ORDERED: Acetaminophen 325 MG Tab PO PRN (23:54)
[2023-06-01] MEDS ORDERED: Sodium Chloride 0.9% 20 ML SDV IV PRN (23:54)
[2023-06-01] MEDS ORDERED: Polyethylene Glycol 3350 Powder 17 GM Packet PO PRN (23:58)
[2023-06-01] MEDS ORDERED: Naloxone 0.4 MG/ML SDV IVPUSH PRN (23:58)
[2023-06-01] MEDS ORDERED: Ondansetron 4 MG/2 ML SDV IVPUSH PRN (23:58)
[2023-06-01] MEDS ORDERED: Albuterol/Ipratropium 3.0-0.5 MG/3 ML Neb Soln NEB PRN (23:58)
[2023-06-02] MEDS ORDERED: Glucagon,Human Recombinant 1 MG Vial IM PRN (00:08)
[2023-06-02] MEDS ORDERED: 50% Dextrose in Water 50 ML Syringe IVPUSH PRN (00:08)
[2023-06-02] MEDS: Lactated Ringers 1,000 ML IV SCH ×2 (02:58→12:11)
[2023-06-02] MEDS: Cefepime 2 GM in Sodium Chloride 0.9% 50 ML IV SCH ×2 (03:54→12:06)
[2023-06-02] MEDS ORDERED: Cefepime 2 GM Vial IVPUSH SCH (04:00)
[2023-06-02] MEDS: Insulin Aspart 100 Units/ML 3 ML Pen SUBCUT SCH ×2 (07:28→11:30)
[2023-06-02] MEDS: VANCOmycin 1.5 GM/300 ML 1.5 GM in Premix Bag 1 BAG IV SCH (08:03)
[2023-06-02 08:30] LABS: BASOPHILS ABSOLUTE AUTO 0.05 K/uL (0.00-0.20); BASOPHILS PERCENT AUTO 0.4 % (0.0-1.0); EOSINOPHILS ABSOLUTE AUTO 0.38 K/uL (0.00-0.45); EOSINOPHILS PERCENT AUTO 2.7 % (0.0-6.0); HEMATOCRIT 30.1 % (42.0-52.0); HEMOGLOBIN 10.6 g/dL (14.0-18.0); IMMATURE GRAN ABSOLUTE AUTO 0.15 K/uL (0.00-0.05); IMMATURE GRAN PERCENT AUTO 1.1 % (0.0-0.4); LYMPHOCYTES ABSOLUTE AUTO 0.83 K/uL (1.00-4.80); LYMPHOCYTES PERCENT AUTO 5.9 % (24.0-44.0); MEAN CORPUSCULAR HEMOGLOBIN 30.1 pg (28.0-32.0); MEAN CORPUSCULAR HGB CONC 35.2 g/dL (32.0-36.0); MEAN CORPUSCULAR VOLUME 85.5 fL (83.0-99.0); MEAN PLATELET VOLUME 8.3 fL (9.4-12.4); MONOCYTES ABSOLUTE AUTO 0.76 K/uL (0.00-0.80); MONOCYTES PERCENT AUTO 5.4 % (0.0-8.0); NEUTROPHILS ABSOLUTE AUTO 11.93 K/uL (1.80-7.70); NEUTROPHILS PERCENT AUTO 84.5 % (41.0-71.0); PLATELET COUNT,PLT 313 K/uL (150-400); RED BLOOD CELL COUNT 3.52 M/uL (4.52-5.90)
[2023-06-02] MEDS ORDERED: Non-Formulary Medication 1 Each (Fluticasone/Salmeterol [Advair 100-50] 14 PUFF/DISKUS Dis INH SCH (09:00)
[2023-06-02] MEDS ORDERED: Sertraline 100 MG Tab PO SCH (09:00)
[2023-06-02] MEDS ORDERED: amLODIPine 5 MG Tab PO SCH (09:00)
[2023-06-02] MEDS ORDERED: Pantoprazole 40 MG in Sodium Chloride 0.9% 10 ML IVPUSH SCH (09:00)
[2023-06-02 09:42] LABS: CALCIUM 8.8 mg/dL (8.5-10.1); CARBON DIOXIDE,CO2 23.9 mmol/L (21.0-32.0); CREATININE 0.8 mg/dL (0.8-1.3); EST CRCL DRUG DOSING (CG) 132.61 mL/min; POTASSIUM,K 3.9 mmol/L (3.5-5.1)
[2023-06-02 12:06] VITALS: BP 128/72; PULSE 90
== END 2023-06-02 13:30 ==
LOC: MW.ED 19:03 → MW.MS 06-02 00:05
PROVIDERS: ADMIT Family Medicine; ATTEND Family Medicine
DX: T81.49XA Infection following a procedure, other surgical site, initial encounter (principal); E11.9 Type 2 diabetes mellitus without complications; I10 Essential (primary) hypertension; E78.00 Pure hypercholesterolemia, unspecified; E66.9 Obesity, unspecified; Z68.31 Body mass index [BMI] 31.0-31.9, adult; K21.9 Gastro-esophageal reflux disease without esophagitis; Z79.4 Long term (current) use of insulin; Z79.899 Other long term (current) drug therapy
CPT/HCPCS: 36415; 72132; 74177; 80048; 80053; 80202; 81001; 82803; 82947; 83605; 83690; 85025; 85610; 87040; 96361; 96365; 96366; 96367; 96375; 96376; 99285; C9113; G0378; J0692; J1815; J3370; J3490; J7120; Q9967; 99284